=== PATIENT | female | born 1945 ===

== ENCOUNTER 2020-10-31 12:04 | Outpatient (REF) | payer MEDICARE, SELFPAY ==
--- NOTE | ~2020-10-31 | XR_ITS ---
EXAMINATION: XR FOOT, RIGHT CLINICAL INFORMATION: Foot pain COMPARISON: None TECHNIQUE: AP, lateral, and oblique views of the right foot. FINDINGS: No acute fracture or dislocation is seen. There is cortical thickening/periosteal changes along the second, third and fourth metatarsal shafts. Tarsometatarsal alignment is maintained. Large plantar calcaneal spur, with additional calcifications/ossifications along its plantar aspect. Moderate Achilles tendon insertional spurring. XR/XR foot RT min 3V IMPRESSION: 1. Cortical thickening/periostitis along the second, third, fourth metatarsal shafts.. This of indeterminate etiology. Please clinically correlate. Further evaluation with follow-up MRI can be obtained as clinically warranted. 2. No discrete acute fracture is identified. 3. Prominent calcaneal spurring as above.
== END 2020-10-31 12:05 | disposition home or self-care (01) ==
LOC: HO.HMGCX 12:04
PROVIDERS: PCP Internal Medicine; Visit Provider Hospitalist
DX: M79.671 Pain in right foot (principal)
CPT/HCPCS: 73630

== ENCOUNTER 2021-01-01 09:53 | Outpatient (REF) | payer MEDICARE, SELFPAY ==
[2021-01-01 12:04] LABS: Hematocrit 33.4 % (37-47); Hemoglobin 11.1 g/dl (12.0-16.0)
[2021-01-01 12:22] LABS: Anion Gap 14 (12-20); Blood Urea Nitrogen 20 mg/dL (9-16); Calcium 10.3 mg/dL (8.4-10.2); Carbon Dioxide 27 mmol/L (22-29); Chloride 95 mmol/L (96-108); Cholesterol 204 mg/dL; Estimated Glomerular Filt Rate > 60; Glucose Fasting 101 mg/dL (60-99); HDL Cholesterol 76 mg/dL; LDL Cholesterol Calculated 117 mg/dl; Magnesium 1.2 mg/dL (1.6-2.6); Potassium 4.1 mmol/L (3.3-5.1); Sodium 132 mmol/L (135-145); Triglycerides 56 mg/dL
== END 2021-01-01 09:54 | disposition home or self-care (01) ==
LOC: HO.HMGCLDS 09:53
PROVIDERS: PCP Internal Medicine; Visit Provider Internal Medicine
DX: K21.9 Gastro-esophageal reflux disease without esophagitis (principal); E78.9 Disorder of lipoprotein metabolism, unspecified; I10 Essential (primary) hypertension
CPT/HCPCS: 36415; 80048; 80061; 83735; 85014; 85018

== ENCOUNTER 2021-01-22 11:48 | Outpatient (REF) | payer MEDICARE, SELFPAY ==
[2021-01-22 14:33] LABS: Anion Gap 15 (12-20); Blood Urea Nitrogen 15 mg/dL (9-16); Calcium 10.1 mg/dL (8.4-10.2); Carbon Dioxide 25 mmol/L (22-29); Chloride 98 mmol/L (96-108); Estimated Glomerular Filt Rate > 60; Magnesium 1.3 mg/dL (1.6-2.6); Sodium 134 mmol/L (135-145)
== END 2021-01-22 11:49 | disposition home or self-care (01) ==
LOC: HO.HMGCLDS 11:48
PROVIDERS: PCP Internal Medicine; Visit Provider Internal Medicine
DX: E87.1 Hypo-osmolality and hyponatremia (principal); E83.52 Hypercalcemia; R79.0 Abnormal level of blood mineral
CPT/HCPCS: 36415; 80051; 82310; 82565; 83735; 84520

== ENCOUNTER 2021-02-13 11:52 | Outpatient (REF) | payer MEDICARE, SELFPAY ==
[2021-02-13 15:13] LABS: Magnesium 1.3 mg/dL (1.6-2.6)
== END 2021-02-13 11:53 | disposition home or self-care (01) ==
LOC: HO.HMGCLDS 11:52
PROVIDERS: Visit Provider Internal Medicine
DX: R79.0 Abnormal level of blood mineral (principal)
CPT/HCPCS: 36415; 83735

== ENCOUNTER 2021-02-20 11:16 | Outpatient (REF) | payer MEDICARE, SELFPAY ==
[2021-02-20 14:34] LABS: Magnesium 1.4 mg/dL (1.6-2.6)
== END 2021-02-20 11:17 | disposition home or self-care (01) ==
LOC: HO.HMGCLDS 11:16
PROVIDERS: PCP Internal Medicine; Visit Provider Internal Medicine
DX: R79.0 Abnormal level of blood mineral (principal); R01.1 Cardiac murmur, unspecified; R42 Dizziness and giddiness; I10 Essential (primary) hypertension
CPT/HCPCS: 36415; 83735

== ENCOUNTER 2021-03-11 10:39 | Outpatient (REF) | payer MEDICARE, SELFPAY ==
[2021-03-11 12:30] LABS: Magnesium 1.4 mg/dL (1.6-2.6)
== END 2021-03-11 10:40 | disposition home or self-care (01) ==
LOC: HO.HMGCLDS 10:39
PROVIDERS: PCP Internal Medicine; Visit Provider Internal Medicine
DX: R79.0 Abnormal level of blood mineral (principal)
CPT/HCPCS: 36415; 83735

== ENCOUNTER 2021-07-01 16:54 | Emergency (ER) | payer MEDICARE, SELFPAY ==
[2021-07-01 16:59] VITALS: BP 154/79; BP 169/82; PULSE 69; PULSE 77; RESP 15; TEMP 37; O2SAT 100; BMI 24.7
--- NOTE | 2021-07-01 17:03 | ED.GENADULT ---
HPI - General Adult General Chief complaint: General Medical Stated complaint: ekg changes weakness Time Seen by Provider: 07/01/21 17:03 Source: patient Mode of arrival: EMS Limitations: no limitations History of Present Illness HPI narrative: Patient history of hypertension on amlodipine and lisinopril , used to be on chlorthalidone which she stopped taking it, sent by PCP office for blood pressure 160/88 with multiple other come EKG done in the office showed first-degree AV block with premature some PVCs patient went to [facility] office for driving license which was rejected, very anxious drinks coffee no active complaints at this time Related Data Home Medications Medication Instructions Recorded Confirmed aspirin 81 mg tablet,delayed 81 mg PO DAILY 09/09/20 07/01/21 release (Adult Low Dose Aspirin) chlorthalidone 25 mg tablet 25 mg PO DAILY 09/09/20 07/01/21 simvastatin 20 mg tablet 20 mg PO DAILY 09/09/20 07/01/21 Previous Rx's Medication Instructions Recorded amlodipine 5 mg tablet 5 mg PO DAILY 90 Days #90 tab 06/02/21 lisinopril 40 mg tablet 40 mg PO DAILY 90 Days #90 tab 06/02/21 pantoprazole 20 mg tablet,delayed 20 mg PO DAILY 90 Days #90 tab 06/04/21 release lorazepam 0.5 mg tablet (Ativan) 0.5 mg PO BEDTIME PRN #14 tab 07/01/21 magnesium oxide 400 mg (241.3 mg 400 mg PO DAILY 90 Days #90 tab 07/01/21 magnesium) tablet Allergies Allergy/AdvReac Type Severity Reaction Status Date / Time meperidine [From DEMEROL] Allergy Intermediate DRY HEAVES Verified 07/01/21 17:10 Sulfa (Sulfonamide Allergy Unknown rash Verified 07/01/21 17:10 Antibiotics) sulfamethoxazole Allergy Unknown RASH Verified 07/01/21 17:10 [From BACTRIM] trimethoprim [From BACTRIM] Allergy Unknown RASH Verified 07/01/21 17:10 bee Allergy Unknown anaphylaxis Uncoded 07/01/21 17:10 Bee stings Allergy Unknown anaphylaxis Uncoded 07/01/21 17:10 Wasps/fire ants Allergy Unknown anaphylaxis Uncoded 07/01/21 17:10 Review of Systems Review of Systems: Yes all other systems are reviewed and are negative PMFSH Past Medical History Surgical History History of section History of nasal surgery History of tubal ligation Hx of removal of ovary Mammogram normal Family History Family History Father Ruptured aortic aneurysm Mother Myocardial infarction Son History of blood clots Social History Social History Housing: Other (mobile home) Alcohol intake: never Patient Tobacco Use Status: Former Tobacco user Quit Date: quit 20 years ago Use of substances other than those prescribed or required for medical reasons: No Advance Directives: No Advance Directives Information Provided: No Current occupational status: retired Physical Exam Vital Signs: Vital Signs: Last Vital Signs Temp 98.6 F 07/01/21 19:00 Pulse 72 07/01/21 19:00 Resp 15 07/01/21 19:00 BP 139/66 07/01/21 19:00 Pulse Ox 97 07/01/21 19:00 Body Mass Index 24.7 Appearance: Alert. Oriented X3. No acute distress. Very anxious Eyes: No pallor / icterus ENT: Pharynx normal. Oral Mucosa moist Neck: Normal inspection. Neck supple. CVS: Normal heart rate and rhythm. Pulses normal. Respiratory: No respiratory distress. Equal air entry bilateral, no wheezing/rales/rhonchi Abdomen: Soft , nontender, Bowel sounds are present, no mass palpable, no CVA tenderness Skin: Skin warm and dry. Normal skin color. Normal skin turgor. Extremities: No lower extremity edema. No calf tenderness Neuro: Oriented X 3. Medical Decision Making Lab Data Result diagrams: 07/01/21 17:31 07/01/21 17:31 Labs: Lab Results 07/01/21 07/01/21 Range/Units 17:31 17:31 WBC 7.1 (4.8-10.8) X10*3/uL RBC 4.48 (4.20-5.50) X10*6/uL Hgb 13.4 D (12.0-16.0) g/dl Hct 39.4 (37-47) % MCV 87.9 (80-98) fL MCH 29.9 (27.0-33.0) pg MCHC 34.0 (31.0-35.0) g/dl RDW 13.6 (11.0-16.0) % Plt Count 365 (160-400) X10*3/uL MPV 8.5 L (9.4-12.3) fL Immature Gran % (Auto) 0.6 H (0.0-0.4) % Neut % (Auto) 73.3 H (45-73) % Lymph % (Auto) 18.2 L (20-40) % [place] % (Auto) 6.4 (2-11) % Eos % (Auto) 1.1 (0-4) % Baso % (Auto) 0.4 (0-2) % Lymph # (Auto) 1.3 (1.2-4.9) X10*3/uL [place] # (Auto) 0.5 (0.1-1.2) X10*3/uL Eos # (Auto) 0.1 (0.0-0.4) X10*3/uL Baso # (Auto) 0.0 (0.0-0.2) X10*3/uL Abs Immat Gran (auto) 0.04 H (0.00-0.03) X10*3/uL Absolute Neuts (auto) 5.2 (2.0-8.3) X10*3/uL Absolute Nucleated RBC 0.000 (0.0-0.012) X10*3/uL Nucleated RBC % (auto) 0.0 (0.0-0.2) /100WBC Sodium 135 (135-145) mmol/L Potassium 3.8 (3.3-5.1) mmol/L Chloride 96 (96-108) mmol/L Carbon Dioxide 24 (22-29) mmol/L Anion Gap 19 (12-20) BUN 12 (9-16) mg/dL Creatinine 0.83 (0.5-1.4) mg/dL Estim Creat Clear Calc 51.2 Estimated GFR > 60 Random Glucose 97 (60-115) mg/dL Calcium 10.7 H (8.4-10.2) mg/dL Magnesium 1.4 L* (1.6-2.6) mg/dL Total Bilirubin 1.3 H (0.0-1.0) mg/dL AST 24 (5-31) U/L ALT 18 (0-31) U/L Alkaline Phosphatase 93 (39-117) U/L Total Protein 8.4 H (6.5-8.0) g/dL Albumin 5.0 (3.5-5.0) g/dL ECG Data Attestation: I personally reviewed and interpreted this ECG as follows: Interpretation: Normal sinus rhythm heart rate 74 beats per minute LVH no acute ST T wave changes no acute ischemia Discharge Plan Discharge Clinical Impression: Elevated blood pressure reading, Hypomagnesemia, Anxiety Patient Disposition: Home, Self-Care Instructions: Hypertension (ED), Hypomagnesemia (ED), Anxiety (ED) Additional Instructions: Continue to take chlorthalidone as advised by her PCP also continue to take magnesium oxide Take Ativan tablet for anxiety every time in the nighttime as needed Prescriptions: New lorazepam [Ativan] 0.5 mg tablet 0.5 mg PO BEDTIME PRN (Reason: anxiety) Qty: 14 RF: 0 No Action amlodipine 5 mg tablet 5 mg PO DAILY 90 Days Qty: 90 RF: 0 lisinopril 40 mg tablet 40 mg PO DAILY 90 Days Qty: 90 RF: 0 pantoprazole 20 mg tablet,delayed release (DR/EC) 20 mg PO DAILY 90 Days Qty: 90 RF: 0 magnesium oxide 400 mg (241.3 mg magnesium) tablet 400 mg PO DAILY 90 Days Qty: 90 RF: 0 simvastatin 20 mg tablet 20 mg PO DAILY RF: 0 aspirin [Adult Low Dose Aspirin] 81 mg tablet,delayed release (DR/EC) 81 mg PO DAILY RF: 0 chlorthalidone 25 mg tablet 25 mg PO DAILY RF: 0 Interventions: ED Discharge Assessment Last Done: 07/01/21 19:04 Discharge Date/Time: 07/01/21 19:12
[2021-07-01 17:08] VITALS: BP 169/80; PULSE 69; RESP 18; TEMP 37; O2SAT 100
--- NOTE | 2021-07-01 17:20 | ECG_ITS ---
Test Reason : DIZZINESS Blood Pressure : / mmHG Vent. Rate : 074 BPM Atrial Rate : 074 BPM P-R Int : 218 ms QRS Dur : 098 ms QT Int : 414 ms P-R-T Axes : 049 -39 044 degrees QTc Int : 459 ms Sinus rhythm with sinus arrhythmia with 1st degree A-V block Left axis deviation Moderate voltage criteria for LVH, may be normal variant ( R in aVL , [place] product ) Nonspecific ST abnormality Abnormal ECG No previous ECGs available Referred By: Yovani Alvarez Electronically Signed By:REENA HEATH MD
[2021-07-01 17:36] LABS: MANUAL DIFF FLAG NO
[2021-07-01 17:41] LABS: Basophils Percent Auto 0.4 % (0-2); Eosinophils Absolute Auto 0.1 X10*3/uL (0.0-0.4); Eosinophils Percent Auto 1.1 % (0-4); Hematocrit 39.4 % (37-47); Hemoglobin 13.4 g/dl (12.0-16.0); Imm Gran Abs Auto 0.04 X10*3/uL (0.00-0.03); Imm Gran Pct Auto 0.6 % (0.0-0.4); Lymphocytes Absolute Auto 1.3 X10*3/uL (1.2-4.9); Lymphocytes Percent Auto 18.2 % (20-40); Mean Corpuscular Hemoglobin 29.9 pg (27.0-33.0); Mean Corpuscular Volume 87.9 fL (80-98); Mean Platelet Volume 8.5 fL (9.4-12.3); Monocytes Absolute Auto 0.5 X10*3/uL (0.1-1.2); Monocytes Percent Auto 6.4 % (2-11); Neutrophils Absolute Auto 5.2 X10*3/uL (2.0-8.3); Neutrophils Percent Auto 73.3 % (45-73); Platelet Count 365 X10*3/uL (160-400); Red Blood Count 4.48 X10*6/uL (4.20-5.50); Red Cell Distribution Width 13.6 % (11.0-16.0); White Blood Count 7.1 X10*3/uL (4.8-10.8)
[2021-07-01 18:19] LABS: Alanine Aminotransferase 18 U/L (0-31); Alkaline Phosphatase 93 U/L (39-117); Anion Gap 19 (12-20); Aspartate Amino Transferase 24 U/L (5-31); Bilirubin Total 1.3 mg/dL (0.0-1.0); Blood Urea Nitrogen 12 mg/dL (9-16); Calcium 10.7 mg/dL (8.4-10.2); Carbon Dioxide 24 mmol/L (22-29); Chloride 96 mmol/L (96-108); Creatinine Clr Calc Pharmacy 51.2; Estimated Glomerular Filt Rate > 60; Glucose Random 97 mg/dL (60-115); Magnesium 1.4 mg/dL (1.6-2.6); Potassium 3.8 mmol/L (3.3-5.1); Sodium 135 mmol/L (135-145); Total Protein 8.4 g/dL (6.5-8.0)
[2021-07-01] MEDS: Magnesium Oxide 400 MG TABLET 800 MG PO (18:30)
[2021-07-01 19:00] VITALS: BP 139/66; PULSE 72; RESP 15; TEMP 37; O2SAT 97
[2021-07-01] MEDS: LORazepam 0.5 MG TABLET PO (19:03)
--- NOTE | 2021-07-01 19:10 | PC.NURSE ---
Pt remains alert and oriented x4, pt noted to have anxiety but is calm and cooperative. Pt denies pain. No IV in place, vitals stable. Pt ambulated without issues. Pt voided. Pt and educated on dc and stated an understanding.
== END 2021-07-01 19:12 | disposition home or self-care (01) ==
PROVIDERS: Emergency Provider Internal Medicine; PCP Internal Medicine
DX: I10 Essential (primary) hypertension (principal); F41.9 Anxiety disorder, unspecified; E83.42 Hypomagnesemia; I44.0 Atrioventricular block, first degree; Z79.899 Other long term (current) drug therapy
CPT/HCPCS: 36415; 80053; 83735; 85025; 93005; 99283; 99284

== ENCOUNTER 2021-11-20 11:55 | Outpatient (REF) | payer MEDICARE, SELFPAY ==
[2021-11-20 14:14] LABS: Alanine Aminotransferase 15 U/L (0-31); Albumin Level 4.3 g/dL (3.5-5.0); Alkaline Phosphatase 79 U/L (39-117); Anion Gap 15 (12-20); Aspartate Amino Transferase 18 U/L (5-31); Bilirubin Total 1.3 mg/dL (0.0-1.0); Blood Urea Nitrogen 11 mg/dL (9-16); Calcium 10.3 mg/dL (8.4-10.2); Carbon Dioxide 25 mmol/L (22-29); Chloride 99 mmol/L (96-108); Estimated Glomerular Filt Rate > 60; Glucose Random 93 mg/dL (60-115); Potassium 4.1 mmol/L (3.3-5.1); Sodium 135 mmol/L (135-145); Total Protein 7.4 g/dL (6.5-8.0)
[2021-11-20 14:27] LABS: Magnesium 1.3 mg/dL (1.6-2.6)
== END 2021-11-20 11:56 | disposition home or self-care (01) ==
LOC: HO.HMGCLDS 11:55
PROVIDERS: PCP Internal Medicine; Visit Provider Internal Medicine
DX: I10 Essential (primary) hypertension (principal); E78.9 Disorder of lipoprotein metabolism, unspecified; R79.0 Abnormal level of blood mineral
CPT/HCPCS: 36415; 80053; 83735

== ENCOUNTER 2021-12-02 11:24 | Outpatient (REF) | payer MEDICARE, SELFPAY ==
[2021-12-02 14:05] LABS: Calcium 10.7 mg/dL (8.4-10.2); Magnesium 1.5 mg/dL (1.6-2.6)
[2021-12-03 12:06] LABS: Calcium (PTHI) 10.5 mg/dL (8.6-10.4); PTHI 53 pg/mL (16-77)
== END 2021-12-02 11:25 | disposition home or self-care (01) ==
LOC: HO.HMGCLDS 11:24
PROVIDERS: PCP Internal Medicine; Visit Provider Internal Medicine
DX: E83.52 Hypercalcemia (principal); I10 Essential (primary) hypertension
CPT/HCPCS: 36415; 82310; 83735; 83970

== ENCOUNTER 2022-07-22 09:10 | Outpatient (REF) | payer MEDICARE, SELFPAY ==
[2022-07-22 11:19] LABS: MANUAL DIFF FLAG NO
[2022-07-22 11:45] LABS: Basophils Absolute Auto 0.1 X10*3/uL (0.0-0.2); Basophils Percent Auto 0.9 % (0-2); Eosinophils Absolute Auto 0.2 X10*3/uL (0.0-0.4); Eosinophils Percent Auto 3.1 % (0-4); Hematocrit 38.5 % (37.0-47.0); Hemoglobin 12.8 g/dl (12.0-16.0); Imm Gran Abs Auto 0.04 X10*3/uL (0.00-0.03); Imm Gran Pct Auto 0.7 % (0.0-0.4); Lymphocytes Absolute Auto 1.4 X10*3/uL (1.2-4.9); Lymphocytes Percent Auto 25.1 % (20-40); Mean Corpuscular HGB Conc 33.2 g/dl (31.0-35.0); Mean Corpuscular Volume 90.2 fL (80.0-98.0); Mean Platelet Volume 8.7 fL (9.4-12.3); Monocytes Absolute Auto 0.4 X10*3/uL (0.1-1.2); Monocytes Percent Auto 7.3 % (2-11); Neutrophils Absolute Auto 3.4 x10*3/uL (2.0-8.3); Neutrophils Percent Auto 62.9 % (45-73); Platelet Count 397 X10*3/uL (160-400); Red Blood Count 4.27 X10*6/uL (4.20-5.50); Red Cell Distribution Width 13.3 % (11.0-16.0); White Blood Count 5.5 X10*3/uL (4.8-10.8)
[2022-07-22 12:08] LABS: Alanine Aminotransferase 14 U/L (0-31); Albumin Level 4.3 g/dL (3.5-5.0); Alkaline Phosphatase 78 U/L (39-117); Anion Gap 16 (12-20); Aspartate Amino Transferase 19 U/L (5-31); Bilirubin Total 0.9 mg/dL (0.0-1.0); Blood Urea Nitrogen 13 mg/dL (9-16); Calcium 10.3 mg/dL (8.4-10.2); Carbon Dioxide 27 mmol/L (22-29); Chloride 98 mmol/L (96-108); Cholesterol 241 mg/dL; Estimated Glomerular Filt Rate > 60; Glucose Random 87 mg/dL (60-115); HDL Cholesterol 93 mg/dL; LDL Cholesterol Calculated 138 mg/dl; Magnesium 1.5 mg/dL (1.6-2.6); Potassium 4.5 mmol/L (3.3-5.1); Sodium 136 mmol/L (135-145); Total Protein 7.3 g/dL (6.5-8.0); Triglycerides 53 mg/dL
[2022-07-22 17:11] LABS: Vitamin B12 461 pg/mL (200-900)
[2022-07-30 14:32] LABS: Vitamin D 25-OH, D2 <4 ng/mL; Vitamin D 25-OH, D3 18 ng/mL; Vitamin D 25-OH, Total 18 ng/mL (30-100)
== END 2022-07-22 09:11 | disposition home or self-care (01) ==
LOC: HO.HMGCLDS 09:10
PROVIDERS: PCP Internal Medicine; Visit Provider Internal Medicine
DX: I10 Essential (primary) hypertension (principal); E78.9 Disorder of lipoprotein metabolism, unspecified; K21.9 Gastro-esophageal reflux disease without esophagitis; E87.1 Hypo-osmolality and hyponatremia; E83.52 Hypercalcemia; R79.0 Abnormal level of blood mineral
CPT/HCPCS: 36415; 80053; 80061; 82306; 82607; 83735; 84443; 85025

== ENCOUNTER 2022-07-25 09:25 | Emergency (ER) | payer MEDICARE, SELFPAY ==
--- NOTE | ~2022-07-25 | CT_ITS ---
EXAMINATION: CT HEAD WITHOUT CONTRAST CLINICAL INFORMATION: Dizziness. COMPARISON: None TECHNIQUE: Contiguous axial imaging was performed from the skull base to vertex without intravenous administration of contrast. Coronal and sagittal reformatted images were obtained. This CT examination was performed using dose optimization techniques as appropriate, variously including the following: *Automated exposure control *Adjustment of mA and/or kV according to patient size (this includes techniques or standardized protocols for targeted exams where dose is matched to indication/reason for exam; i.e. extremities or head) *Use of iterative reconstruction technique DLP: 509 mGy-cm FINDINGS: There is mild widening of the cortical sulci and associated ventriculomegaly. The lateral ventricles are symmetrical. Mild periventricular microvascular changes. The third and fourth ventricles are in their normal midline position. The basilar and prepontine cisterns are unremarkable. There is no acute intra or extracerebral abnormality. There is no mass effect or midline shift. Sections through the bony calvarium are unremarkable. The orbits are intact. The paranasal sinuses are clear. The mastoid air cells are clear. Mild anterior nasal septal deviation, apex of the right. CT/CT head/brain wo IV con IMPRESSION: No acute intracranial pathology.
[2022-07-25 09:29] VITALS: BP 128/80; BP 145/59; PULSE 57; PULSE 67; RESP 20; TEMP 36.5; O2SAT 100; O2SAT 96; BMI 23.8
--- NOTE | 2022-07-25 09:32 | ED_ITS ---
HPI - Dizziness General Chief Complaint: General Medical Stated Complaint: LIGHTHEADED THIS AM,? NEW MED PER EMS Time Seen by Provider: 07/25/22 09:27 Source: patient and EMS Mode of arrival: EMS Limitations: no limitations History of Present Illness HPI Narrative: 77-year-old female with a history of hypertension, hyperlipidemia, GERD, anxiety presents with episode of lightheadedness which occurred just prior to arrival and is now resolved. Per patient she stood up and felt very lightheaded like she was going to pass out. When she sat down she felt better. Patient reports episodes like this similar in the past. Of note, they did recently change her blood pressure medication. Her amlodipine, lisinopril and chlorthalidone were discontinued. She was placed on lisinopril with hydrochlorothiazide combin ation. She has been taking that for the last few days. Patient reports when she stood up she also felt very sweaty. She had no associated chest pain, shortness of breath, headache, vomiting. She feels overall much better at rest but does still have some slight lightheadedness. Related Data Home Medications Medication Instructions Recorded Confirmed aspirin 81 mg tablet,delayed 81 mg PO DAILY 09/09/20 07/21/22 release (Adult Low Dose Aspirin) Previous Rx's Medication Instructions Recorded lorazepam 0.5 mg tablet (Ativan) 0.5 mg PO BEDTIME PRN anxiety #14 07/01/21 tabs pantoprazole 20 mg tablet,delayed 20 mg PO DAILY 90 days #90 tabs 06/14/22 release magnesium oxide 400 mg (241.3 mg 400 mg PO DAILY 90 days #90 tabs 06/16/22 magnesium) tablet lisinopril 20 1 tab PO BID 90 days #180 tabs 07/21/22 mg-hydrochlorothiazide 12.5 mg tablet Allergies Allergy/AdvReac Type Severity Reaction Status Date / Time meperidine [From DEMEROL] Allergy Intermediate DRY HEAVES Verified 07/21/22 10:23 Sulfa (Sulfonamide Allergy Unknown rash Verified 07/21/22 10:23 Antibiotics) sulfamethoxazole Allergy Unknown RASH Verified 07/21/22 10:23 [From BACTRIM] trimethoprim [From BACTRIM] Allergy Unknown RASH Verified 07/21/22 10:23 bee Allergy Unknown anaphylaxis Uncoded 11/24/21 10:13 Bee stings Allergy Unknown anaphylaxis Uncoded 11/24/21 10:13 Wasps/fire ants Allergy Unknown anaphylaxis Uncoded 11/24/21 10:13 Review of Systems Review of Systems: Yes all other systems are reviewed and are negative Constitutional: Constitutional: Reports no additional constitutional complaints, Denies body ache(s), Denies chills, Denies fever(s), Denies headache(s) and Denies weakness Eyes: Eyes: Reports no additional eye complaints and Denies change in vision ENT: Reports system reviewed and no additional complaints, except as documented, Reports dizziness, Denies headache(s), Denies nasal congestion, Denies nasal discharge and Denies neck pain Cardiovascular: Cardiovascular: Reports no additional cardiovascular complaints, Denies chest pain, Denies leg edema and Denies dyspnea Respiratory: Respiratory: Reports no additional respiratory complaints, Denies cough and Denies dyspnea Gastrointestinal: Gastrointestinal: Reports no additional gastrointestinal complaints, Denies abdominal pain, Denies diarrhea, Denies nausea and Denies vomiting Genitourinary: Genitourinary: Reports no additional female genitourinary complaints and Denies urinary incontinence Musculoskeletal: Musculoskeletal: Reports no additional musculoskeletal compla ints, Denies back pain, Denies arthralgias, Denies joint swelling, Denies neck pain, Denies numbness and Denies tingling Integumentary/Breasts: Skin/Breast: Reports system reviewed and no additional complaints, except as docu and Denies rash Neurologic: Reports system reviewed and no additional complaints, except as documented, Denies Abnormal speech present, Reports dizziness, Denies headache(s), Denies numbness, Denies tingling and Denies weakness [facility] Past Medical History Attestation statement: The following information was validated with the patient. Source: old records reviewed and nursing notes reviewed Surgical History History of section History of nasal surgery History of tubal ligation Hx of removal of ovary Mammogram normal Family History Family History Father Ruptured aortic aneurysm Mother Myocardial infarction Son History of blood clots Social History Social History Housing: Other (mobile home) Alcohol intake: current Alcohol intake frequency: 0-2 drinks per day Alcohol type: beer Patient Tobacco Use Status: Former Tobacco user Quit Date: quit 20 years ago Smoked in Last 30 Days: No e-Cigarette/Vaping Use: Never Used Use of substances other than those prescribed or required for medical reasons: No Advance Directives: No Advance Directives Information Provided: No Current occupational status: retired Cognitive needs: No Hearing needs: No Vision needs: No Physical Exam Vital Signs: Vital Signs: Last Vital Signs Temp 98.1 F 07/25/22 15:44 Pulse 65 07/25/22 15:44 Resp 17 07/25/22 15:44 BP 162/73 H 07/25/22 15:44 Pulse Ox 99 07/25/22 15:44 O2 Del Method 07/25/22 15:44 BMI result Body Mass Index 23.8 Const: General: cooperative, healthy appearing, comfortable and no acute dis tress Orientation/consciousness: patient oriented x3 Limitations: no limitations HEENT: Head: Yes normal to inspection Ears: hearing grossly normal bilaterally General nose exam: Normal external nose present Face and sinus: Yes normal facial exam Mouth: Normal oral and palatal mucosa present Throat: Yes posterior oropharynx normal Eyes: General: appearance normal, both eyes and all related structures Pupils: Equal, round and reactive pupils present Neck: Neck: Yes normal visual inspection Chest: Chest palpation & inspection: normal inspection of the chest Resp: Effort & Inspection: normal respiratory effort Auscultation: clear to auscultation bilaterally Cardio: Rate: regular rate Rhythm: regular rhythm Peripheral pulses: Peripheral pulses 2+ throughout GI: Inspection: Yes normal to inspection Palpation (GI): Soft to palpation and nontender Auscultation: normal bowel sounds Back/Spine/Pelvis: Thoracic/Lumbar Spine: thoracic and lumbar spine normal to inspection Skin: General skin exam: no rashes or lesions noted Neuro: General: patient oriented x3, moves all extremities, no focal motor deficits and normal sensation to monofilament Cranial nerves: Yes CN's II-XII intact bilaterally, Yes Equal, round and reactive pupils present, Yes Bilaterally intact EOM present, Yes Nystagmus not present, Yes Normal facial strength present and Yes Midline tongue present Cognition (Neuro): normal cognition Speech: No Abnormal speech present Gait exam (Neuro): Normal gait present Motor exam (neuro): 5/5 motor strength present throughout Sensory Exam: Normal double simultaneous stimulation for sensation Coordination: [id number] test normal, [id number] test normal and tandem gait normal Extrem: General: Yes normal to inspection Course Course Course Narrative: 1000-patient with a 20 point increase in heart rate and 20 point decrease in systolic blood pressure with position changes. Will give IV fluid bolus Reevaluation(s) Reevaluation #1: 1100-labs show hypo magnesium me a which appears chronic. Mild hyponatremia which may be secondary to recent diuretic start. Patient receiving saline. Will add magnesium replacement. Will reassess Reevaluation #2: 1330-Family arrives and has a very different HPI to share with staff. Per family patient was sitting in her chair complaining of feeling lightheaded, had ?shaking activity of upper arms and eyes rolling around but no LOC. Patient fell out of the chair. +head strike on the wall. No incontinence of urine/stool. Episode was brief per family seconds with no postictal state. Will check CT head. Reevaluation #3: 1650-CT head shows no acute finding. Repeat sodium and magnesium are improved with some hydration. Patient overall feels better. Ambulating to bathroom a steady gait. Low magnesium and sodium likely secondary to recent diuretic use. Her blood pressure is mildly elevated here. Recommend take lisinopril only and not lisinopril with hydrochlorothiazide. She does have lisinopril at home. She will take her 1st dose tonight. Recommend follow-up with her primary care doctor outpatient. Reviewed worrisome signs and symptoms of when to return to the emergency room. Comfortable discharge home. Medications Administered Discontinued Medications Generic Name Dose Route Start Last Admin Trade Name Rahatq PRN Reason Stop Dose Admin Sodium Chloride 1,000 mls @ 999 mls/hr 07/25/22 10:05 07/25/22 15:50 Ns IV 07/25/22 11:05 Infused .Q1H1M STA Infusion Magnesium Sulfate 2 gm in 50 mls @ 25 mls/hr 07/25/22 10:56 07/25/22 12:49 Magnesium Sulfate/H2o IV 07/25/22 12:55 Infused ONCE ONE Infusion MDM - Dizziness MDM Narrative Medical decision making narrative: 77-year-old female with recent changes in her blood pressure medication here with episode of lightheadedness that occurred with position changes and sweaty sensation now improved with rest. Normal neuro exam including cerebellar function Vitals are stable Will check labs, UA, EKG, COVID screen, orthostatic Likely orthostatic hypotension, consider [facility] Medical Records Attestation: I reviewed the patient's medical records. Lab Data Attestation: I reviewed the patient's lab results. Result diagrams: 07/25/22 10:00 07/25/22 15:37 Labs: Lab Results 07/25/22 07/25/22 07/25/22 Range/Units 10:00 10:00 10:00 WBC 6.1 (4.8-10.8) X10*3/uL RBC 4.38 (4.20-5.50) X10*6/uL Hgb 13.2 (12.0-16.0) g/dl Hct 38.1 (37.0-47.0) % MCV 87.0 (80.0-98.0) fL MCH 30.1 (27.0-33.0) pg MCHC 34.6 (31.0-35.0) g/dl RDW 12.9 (11.0-16.0) % Plt Count 371 (160-400) X10*3/uL MPV 8.4 L (9.4-12.3) fL Immature Gran % (Auto) 0.8 H (0.0-0.4) % Neut % (Auto) 66.3 (45-73) % Lymph % (Auto) 20.2 (20-40) % Wetzel % (Auto) 8.6 (2-11) % Eos % (Auto) 3.1 (0-4) % Baso % (Auto) 1.0 (0-2) % Lymph # (Auto) 1.2 (1.2-4.9) X10*3/uL Wetzel # (Auto) 0.5 (0.1-1.2) X10*3/uL Eos # (Auto) 0.2 (0.0-0.4) X10*3/uL Baso # (Auto) 0.1 (0.0-0.2) X10*3/uL Abs Immat Gran (auto) 0.05 H (0.00-0.03) X10*3/uL Absolute Neuts (auto) 4.1 (2.0-8.3) x10*3/uL Absolute Nucleated RBC 0.000 (0.0-0.012) X10*3/uL Nucleated RBC % (auto) 0.0 (0.0-0.2) /100WBC Sodium 131 L (135-145) mmol/L Potassium 4.2 (3.3-5.1) mmol/L Chloride 92 L (96-108) mmol/L Carbon Dioxide 24 (22-29) mmol/L Anion Gap 19 (12-20) BUN 17 H (9-16) mg/dL Creatinine 0.88 (0.5-1.4) mg/dL Estim Creat Clear Calc 43.6 Estimated GFR > 60 Random Glucose 132 H (60-115) mg/dL Calcium 10.5 H (8.4-10.2) mg/dL Magnesium 1.3 L* (1.6-2.6) mg/dL Total Bilirubin 1.0 (0.0-1.0) mg/dL Direct Bilirubin 0.4 (0.0-0.5) mg/dL AST 22 (5-31) U/L ALT 15 (0-31) U/L Alkaline Phosphatase 79 (39-117) U/L Troponin I High Sens 5.1 (<3.5-17.0) ng/L Total Protein 7.7 (6.5-8.0) g/dL Albumin 4.5 (3.5-5.0) g/dL Urine Color Urine Appearance Urine pH (5.0-9.0) Ur Specific [place] (1.005-1.025) Urine Protein (Neg-Trace) mg/dL Urine Glucose (UA) (Negative) mg/dL Urine Ketones (Negative) mg/dL Urine Blood (Negative) Urine Nitrite (Negative) Ur Leukocyte Esterase (Negative) COVID-19 (DEIRDRE) (Negative) COVID-19 Clin Com 07/25/22 07/25/22 07/25/22 Range/Units 10:00 15:37 15:38 WBC (4.8-10.8) X10*3/uL RBC (4.20-5.50) X10*6/uL Hgb (12.0-16.0) g/dl Hct (37.0-47.0) % MCV (80.0-98.0) fL MCH (27.0-33.0) pg MCHC (31.0-35.0) g/dl RDW (11.0-16.0) % Plt Count (160-400) X10*3/uL MPV (9.4-12.3) fL Immature Gran % (Auto) (0.0-0.4) % Neut % (Auto) (45-73) % Lymph % (Auto) (20-40) % Wetzel % (Auto) (2-11) % Eos % (Auto) (0-4) % Baso % (Auto) (0-2) % Lymph # (Auto) (1.2-4.9) X10*3/uL Wetzel # (Auto) (0.1-1.2) X10*3/uL Eos # (Auto) (0.0-0.4) X10*3/uL Baso # (Auto) (0.0-0.2) X10*3/uL Abs Immat Gran (auto) (0.00-0.03) X10*3/uL Absolute Neuts (auto) (2.0-8.3) x10*3/uL Absolute Nucleated RBC (0.0-0.012) X10*3/uL Nucleated RBC % (auto) (0.0-0.2) /100WBC Sodium 133 L (135-145) mmol/L Potassium 4.2 (3.3-5.1) mmol/L Chloride 97 (96-108) mmol/L Carbon Dioxide 25 (22-29) mmol/L Anion Gap 15 (12-20) BUN 14 (9-16) mg/dL Creatinine 0.74 (0.5-1.4) mg/dL Estim Creat Clear Calc 51.9 Estimated GFR > 60 Random Glucose 89 (60-115) mg/dL Calcium 10.0 (8.4-10.2) mg/dL Magnesium 1.9 (1.6-2.6) mg/dL Total Bilirubin (0.0-1.0) mg/dL Direct Bilirubin (0.0-0.5) mg/dL AST (5-31) U/L ALT (0-31) U/L Alkaline Phosphatase (39-117) U/L Troponin I High Sens 5.2 (<3.5-17.0) ng/L Total Protein (6.5-8.0) g/dL Albumin (3.5-5.0) g/dL Urine Color Urine Appearance Urine pH (5.0-9.0) Ur Specific [place] (1.005-1.025) Urine Protein (Neg-Trace) mg/dL Urine Glucose (UA) (Negative) mg/dL Urine Ketones (Negative) mg/dL Urine Blood (Negative) Urine Nitrite (Negative) Ur Leukocyte Esterase (Negative) COVID-19 (DEIRDRE) Negative (Negative) COVID-19 Clin Com See Note 07/25/22 Range/Units 16:19 WBC (4.8-10.8) X10*3/uL RBC (4.20-5.50) X10*6/uL Hgb (12.0-16.0) g/dl Hct (37.0-47.0) % MCV (80.0-98.0) fL MCH (27.0-33.0) pg MCHC (31.0-35.0) g/dl RDW (11.0-16.0) % Plt Count (160-400) X10*3/uL MPV (9.4-12.3) fL Immature Gran % (Auto) (0.0-0.4) % Neut % (Auto) (45-73) % Lymph % (Auto) (20-40) % Wetzel % (Auto) (2-11) % Eos % (Auto) (0-4) % Baso % (Auto) (0-2) % Lymph # (Auto) (1.2-4.9) X10*3/uL Wetzel # (Auto) (0.1-1.2) X10*3/uL Eos # (Auto) (0.0-0.4) X10*3/uL Baso # (Auto) (0.0-0.2) X10*3/uL Abs Immat Gran (auto) (0.00-0.03) X10*3/uL Absolute Neuts (auto) (2.0-8.3) x10*3/uL Absolute Nucleated RBC (0.0-0.012) X10*3/uL Nucleated RBC % (auto) (0.0-0.2) /100WBC Sodium (135-145) mmol/L Potassium (3.3-5.1) mmol/L Chloride (96-108) mmol/L Carbon Dioxide (22-29) mmol/L Anion Gap (12-20) BUN (9-16) mg/dL Creatinine (0.5-1.4) mg/dL Estim Creat Clear Calc Estimated GFR Random Glucose (60-115) mg/dL Calcium (8.4-10.2) mg/dL Magnesium (1.6-2.6) mg/dL Total Bilirubin (0.0-1.0) mg/dL Direct Bilirubin (0.0-0.5) mg/dL AST (5-31) U/L ALT (0-31) U/L Alkaline Phosphatase (39-117) U/L Troponin I High Sens (<3.5-17.0) ng/L Total Protein (6.5-8.0) g/dL Albumin (3.5-5.0) g/dL Urine Color Yellow Urine Appearance Clear Urine pH 7.0 (5.0-9.0) Ur Specific [place] 1.010 (1.005-1.025) Urine Protein Negative (Neg-Trace) mg/dL Urine Glucose (UA) Negative (Negative) mg/dL Urine Ketones Trace (Negative) mg/dL Urine Blood Negative (Negative) Urine Nitrite Negative (Negative) Ur Leukocyte Esterase Negative (Negative) COVID-19 (DEIRDRE) (Negative) COVID-19 Clin Com Imaging Data CT scan - head: Attestation: I personally reviewed and interpreted this imaging study as follows: Radiologist's impression: [place] [id number] CT Scan Report Signed Patient: Caitie Rodriguez MR#: [id number] : 1945 Acct:[id number] Age/Sex: 77 / F ADM Date: 07/25/22 Loc: HO.ED Attending Dr: Ordering Physician: Nichole Barry NP Date of Service: 07/25/22 Procedure(s): CT head/brain wo IV con Accession Number(s): [id number] cc: Nichole Barry NP~ EXAMINATION: CT HEAD WITHOUT CONTRAST CLINICAL INFORMATION: Dizziness.? COMPARISON: None TECHNIQUE: Contiguous axial imaging was performed from the skull base to vertex without intravenous administration of contrast. Coronal and sagittal reformatted images were obtained. This CT examination was performed using dose optimization techniques as appropriate, variously including the following: *Automated exposure control *Adjustment of mA and/or kV according to patient size (this includes techniques or standardized protocols for targeted exams where dose is matched to indication/reason for exam; i.e. extremities or head) *Use of iterative reconstruction technique DLP: 509 mGy-cm FINDINGS: There is mild widening of the cortical sulci and associated ventriculomegaly. The lateral ventricles are symmetrical. Mild periventricular microvascular changes. The third and fourth ventricles are in their normal midline position. The basilar and prepontine cisterns are unremarkable. There is no acute intra or extracerebral abnormality. There is no mass effect or midline shift. Sections through the bony calvarium are unremarkable. The orbits are intact. The paranasal sinuses are clear. The mastoid air cells are clear. Mild anterior nasal septal deviation, apex of the right. CT/CT head/brain wo IV con IMPRESSION: No acute intracranial pathology. ECG Data Attestation: I personally reviewed and interpreted this ECG as follows: ECG interpretation date: 07/25/22 ECG interpretation time: 10:28 Interpretation: EKG is interpreted as AFib. However there are P waves present. There is artifact. This appears to be normal sinus rhythm with PACs. There are Q-waves noted in V1 and V3 which are on previous EKG June of 2021 Discharge Plan Discharge Clinical Impression: Low magnesium level, Low sodium levels, Dizziness Patient Disposition: Home, Self-Care Instructions: Hyponatremia (ED), Hypomagnesemia (ED), Dizziness (ED) Additional Instructions: Change positions slowly Stop taking the lisinopril-hydrochlorothiazide combination. Take lisinopril only and take at nighttime. Follow-up with Dr Daphne Fraga this week. Prescriptions: No Action pantoprazole 20 mg tablet,delayed release (DR/EC) 20 mg PO DAILY 90 Days Qty: 90 0RF magnesium oxide 400 mg (241.3 mg magnesium) tablet 400 mg PO DAILY 90 Days Qty: 90 0RF lorazepam [Ativan] 0.5 mg tablet 0.5 mg PO BEDTIME PRN (Reason: anxiety) Qty: 14 0RF aspirin [Adult Low Dose Aspirin] 81 mg tablet,delayed release (DR/EC) 81 mg PO DAILY lisinopril-hydrochlorothiazide 20-12.5 mg tablet 1 tab PO BID 90 Days Qty: 180 0RF Referrals: Daphne Fraga MD [Primary Care Provider] - 1 week
--- NOTE | 2022-07-25 09:33 | ECG_ITS ---
Test Reason : DIZZINESS Blood Pressure : / mmHG Vent. Rate : 058 BPM Atrial Rate : 000 BPM P-R Int : 000 ms QRS Dur : 086 ms QT Int : 440 ms P-R-T Axes : 000 -49 053 degrees QTc Int : 431 ms Sinus bradycardia with 1st degree A-V block with occasional Premature atrial complexes Left anterior fascicular block Moderate voltage criteria for LVH, may be normal variant ( R in aVL , [place] product ) Abnormal ECG When compared with ECG of 01-JUL-2021 17:55, Questionable change in initial forces of Septal leads Non-specific change in ST segment in Lateral leads Referred By: Nichole Barry Electronically Signed By:REENA HEATH MD
[2022-07-25 09:45] VITALS: BP 139/52; PULSE 57
[2022-07-25 09:47] VITALS: BP 122/64; PULSE 70
[2022-07-25 09:50] VITALS: BP 113/74; PULSE 72
[2022-07-25 10:04] LABS: MANUAL DIFF FLAG NO
[2022-07-25 10:08] LABS: Basophils Absolute Auto 0.1 X10*3/uL (0.0-0.2); Eosinophils Absolute Auto 0.2 X10*3/uL (0.0-0.4); Eosinophils Percent Auto 3.1 % (0-4); Hematocrit 38.1 % (37.0-47.0); Hemoglobin 13.2 g/dl (12.0-16.0); Imm Gran Abs Auto 0.05 X10*3/uL (0.00-0.03); Imm Gran Pct Auto 0.8 % (0.0-0.4); Lymphocytes Absolute Auto 1.2 X10*3/uL (1.2-4.9); Lymphocytes Percent Auto 20.2 % (20-40); Mean Corpuscular HGB Conc 34.6 g/dl (31.0-35.0); Mean Corpuscular Hemoglobin 30.1 pg (27.0-33.0); Mean Platelet Volume 8.4 fL (9.4-12.3); Monocytes Absolute Auto 0.5 X10*3/uL (0.1-1.2); Monocytes Percent Auto 8.6 % (2-11); Neutrophils Absolute Auto 4.1 x10*3/uL (2.0-8.3); Neutrophils Percent Auto 66.3 % (45-73); Platelet Count 371 X10*3/uL (160-400); Red Blood Count 4.38 X10*6/uL (4.20-5.50); Red Cell Distribution Width 12.9 % (11.0-16.0); White Blood Count 6.1 X10*3/uL (4.8-10.8)
[2022-07-25] MEDS: 0.9 % Sodium Chloride 1,000 ML 999 ML IV (10:10)
[2022-07-25 10:17] LABS: IDNOW Serial# 55D5AD1C
[2022-07-25 10:18] LABS: COVID-19 Test Negative (Negative)
[2022-07-25 10:46] LABS: Troponin-I High Sensitivity 5.1 ng/L (<3.5-17.0)
[2022-07-25 10:57] LABS: Alanine Aminotransferase 15 U/L (0-31); Albumin Level 4.5 g/dL (3.5-5.0); Alkaline Phosphatase 79 U/L (39-117); Anion Gap 19 (12-20); Aspartate Amino Transferase 22 U/L (5-31); Bilirubin Direct 0.4 mg/dL (0.0-0.5); Blood Urea Nitrogen 17 mg/dL (9-16); Calcium 10.5 mg/dL (8.4-10.2); Carbon Dioxide 24 mmol/L (22-29); Chloride 92 mmol/L (96-108); Creatinine Clr Calc Pharmacy 43.6; Estimated Glomerular Filt Rate > 60; Glucose Random 132 mg/dL (60-115); Magnesium 1.3 mg/dL (1.6-2.6); Potassium 4.2 mmol/L (3.3-5.1); Sodium 131 mmol/L (135-145); Total Protein 7.7 g/dL (6.5-8.0)
[2022-07-25] MEDS: Magnesium Sulfate/H2O 2 GM/50 ML PIGGYBACK IV (11:11)
[2022-07-25 12:35] VITALS: BP 143/76; PULSE 64; RESP 17; TEMP 36.6; O2SAT 100
[2022-07-25 15:44] VITALS: BP 162/73; PULSE 65; RESP 17; TEMP 36.7; O2SAT 99
[2022-07-25 16:11] LABS: Anion Gap 15 (12-20); Blood Urea Nitrogen 14 mg/dL (9-16); Carbon Dioxide 25 mmol/L (22-29); Chloride 97 mmol/L (96-108); Creatinine Clr Calc Pharmacy 51.9; Estimated Glomerular Filt Rate > 60; Glucose Random 89 mg/dL (60-115); Magnesium 1.9 mg/dL (1.6-2.6); Potassium 4.2 mmol/L (3.3-5.1); Sodium 133 mmol/L (135-145)
[2022-07-25 16:16] LABS: Troponin-I High Sensitivity 5.2 ng/L (<3.5-17.0)
[2022-07-25 16:32] LABS: Appearance Urine Clear; Color Urine Yellow; Glucose Urine UA Negative (Negative); Leukocyte Esterase Urine Negative (Negative); Nitrite Urine Negative (Negative); Urine Blood Negative (Negative); Urine Ketones Trace mg/dL (Negative); Urine Protein Negative (Neg-Trace)
[2022-07-27 13:52] LABS: Calcium, Ionized 5.3 mg/dL (4.8-5.6)
== END 2022-07-25 16:53 | disposition home or self-care (01) ==
PROVIDERS: Nurse Practitioner Family; Emergency Provider Emergency Medicine Emergency Medical Services; PCP Internal Medicine
DX: R42 Dizziness and giddiness (principal); I10 Essential (primary) hypertension; E83.40 Disorders of magnesium metabolism, unspecified; R51.9 Headache, unspecified; Z79.899 Other long term (current) drug therapy; Z20.822 Contact with and (suspected) exposure to COVID-19
CPT/HCPCS: 36415; 70450; 80048; 80076; 81003; 82330; 83735; 84484; 85025; 87635; 93005; 96365; 96366; 99284; J3475

== ENCOUNTER 2023-04-20 12:24 | Outpatient (AMB) | payer MEDICARE, SELFPAY ==
--- NOTE | 2023-04-20 12:25 | MHC.PC.OV ---
Vital Signs 04/20/23 12:27 Height 5 ft 2 in Weight 128 lb BMI 23.4 BP 130/80 Blood Pressure Location Lt brachial Position Sitting Pulse 60 Pulse Source Pulse Oximeter Pulse Oximetry (%) 100 Oxygen Delivery Method Room Air Intake Visit Reasons: 4m f/u reschedule Allergies meperidine [From DEMEROL] Allergy (Intermediate, Verified 04/20/23 12:27) DRY HEAVES Sulfa (Sulfonamide Antibiotics) Allergy (Unknown, Verified 04/20/23 12:27) rash sulfamethoxazole [From BACTRIM] Allergy (Unknown, Verified 04/20/23 12:27) RASH trimethoprim [From BACTRIM] Allergy (Unknown, Verified 04/20/23 12:27) RASH bee Allergy (Unknown, Uncoded 04/20/23 12:27) anaphylaxis Bee stings Allergy (Unknown, Uncoded 04/20/23 12:27) anaphylaxis Wasps/fire ants Allergy (Unknown, Uncoded 04/20/23 12:27) anaphylaxis Hydrochlorothiazide Adverse Reaction (Mild, Uncoded 04/20/23 12:27) Lightheadedness Medication List - Last Reconciled 04/20/23 by Daphne Fraga MD aspirin (Adult Low Dose Aspirin) 81 mg PO DAILY lisinopril 40 mg PO DAILY magnesium oxide 400 mg PO DAILY 90 days pantoprazole 20 mg PO DAILY 90 days Tobacco use date assessed: 11/24/22 HPI 4m f/u reschedule HPI Details Patient is 77-year-old female came in today for her regular follow-up appointment Patient is in her usual state of health offer no new complaints Blood pressure is stable patient is taking lisinopril 40 mg , tolerating medication Hypo magnesemia:? Patient is on magnesium supplement she has been evaluated by a import/export specialist Her calcium level runs high we did parathyroid hormone level which came back normal? GERD:? Patient is on pantoprazole 20 mg and is doing well? Lipid disorder:? She has stopped taking simvastatin and does not want to take it She is taking care of number of animals at home. Lab order was placed Last time patient did not do it. Reminded again. She has a physical exam appointment next year in November she will return then. [facility] Surgical History History of section History of nasal surgery History of tubal ligation Hx of removal of ovary Mammogram normal Family History Father Ruptured aortic aneurysm Mother Myocardial infarction Son History of blood clots Social History Housing: Other (mobile home) Alcohol intake: current Alcohol intake frequency: 0-2 drinks per day Alcohol type: beer Patient Tobacco Use Status: Former Tobacco user Quit Date: quit 20 years ago e-Cigarette/Vaping Use: Never Used Current occupational status: retired Cognitive needs: No Hearing needs: No Vision needs: No Questionnaire Thrive Questionnaire Date Thrive assessed: 02/20/21 Review of Systems Const Denies chills and Denies fever(s) ENT Denies epistaxis and Denies nasal discharge Card Denies chest pain Resp Denies chest congestion, Denies cough and Denies hemoptysis GI Denies diarrhea and Denies nausea Skin/Breast Denies rash Neuro Reports no additional complaints Psych Reports no additional complaints Endo Reports no additional complaints Physical exam (Primary Care) Vital Signs: Last Vital Signs Pulse 60 04/20/23 12:27 BP 130/80 04/20/23 12:27 Pulse Ox 100 04/20/23 12:27 Oxygen Delivery Method Room Air 04/20/23 12:27 BMI result Body Mass Index 23.4 Tobacco/Smoking Status: Tobacco use Status Tobacco use date assessed 11/24/22 04/20/23 12:29 Patient Tobacco Use Status Former Tobacco user 04/20/23 12:29 e-Cigarette/Vaping Use Never Used 04/20/23 12:29 Thrive Assessment: Date of Thrive Assessment Date Thrive assessed 02/20/21 04/20/23 12:29 Const General: cooperative, comfortable and no acute distress Orientation/consciousness: patient oriented x3 HENMT Head: Yes normocephalic Eyes General: appearance normal, both eyes and all related structures Neck Neck: Yes supple Resp Effort & Inspection: normal respiratory effort, no cough and no stridor Cardio Rhythm: regular rhythm Heart sounds: S1 normal heart sound present and S2 normal heart sound present Back/Spine/Pelvis Other: Kyphosis present Skin General skin exam: turgor normal Neuro General: patient oriented x3, tone normal and moves all extremities Extrem Right lower extremity: no edema Left lower extremity: no edema Assessment and Plan Assessment & Plan (1) Benign essential HTN: Code(s): I10 - Essential (primary) hypertension (2) Lipid disorder: Code(s): E78.9 - Disorder of lipoprotein metabolism, unspecified (3) Chronic GERD: Code(s): K21.9 - Gastro-esophageal reflux disease without esophagitis (4) Low magnesium level: Code(s): R79.0 - Abnormal level of blood mineral (5) Kyphosis: Code(s): M40.209 - Unspecified kyphosis, site unspecified Plan Patient is 77-year-old female came in today for her regular follow-up appointment Patient is in her usual state of health offer no new complaints Blood pressure is stable patient is taking lisinopril 40 mg , tolerating medication Hypo magnesemia:? Patient is on magnesium supplement she has been evaluated by a import/export specialist Her calcium level runs high we did parathyroid hormone level which came back normal? GERD:? Patient is on pantoprazole 20 mg and is doing well? Lipid disorder:? She has stopped taking simvastatin and does not want to take it She is taking care of number of animals at home. Lab order was placed Last time patient did not do it. Reminded again. She has a physical exam appointment next year in November she will return then. Coding Level of Care Code Est Pt Level 4 (88755) Diagnoses Benign essential HTN I10 Lipid disorder E78.9 Chronic GERD K21.9 Low magnesium level R79.0 Kyphosis M40.209
[2023-04-20 12:27] VITALS: BP 130/80; PULSE 60; O2SAT 100; BMI 23.4
== END 2023-04-20 13:36 | disposition home or self-care (01) ==
PROVIDERS: PCP Internal Medicine; Visit Provider Internal Medicine
DX: I10 Essential (primary) hypertension (principal); E78.9 Disorder of lipoprotein metabolism, unspecified; K21.9 Gastro-esophageal reflux disease without esophagitis; R79.0 Abnormal level of blood mineral; M40.209 Unspecified kyphosis, site unspecified
CPT/HCPCS: 99214

== ENCOUNTER 2023-04-20 12:56 | Outpatient (REF) | payer MEDICARE, SELFPAY ==
[2023-04-20 15:59] LABS: MANUAL DIFF FLAG NO
[2023-04-20 16:12] LABS: Basophils Absolute Auto 0.1 X10*3/uL (0.0-0.2); Basophils Percent Auto 0.8 % (0-2); Eosinophils Absolute Auto 0.1 X10*3/uL (0.0-0.4); Eosinophils Percent Auto 1.4 % (0-4); Hemoglobin 12.6 g/dl (12.0-16.0); Imm Gran Abs Auto 0.06 X10*3/uL (0.00-0.03); Lymphocytes Absolute Auto 1.1 X10*3/uL (1.2-4.9); Lymphocytes Percent Auto 17.1 % (20-40); Mean Corpuscular HGB Conc 34.1 g/dl (31.0-35.0); Mean Corpuscular Hemoglobin 29.9 pg (27.0-33.0); Mean Corpuscular Volume 87.7 fL (80.0-98.0); Mean Platelet Volume 8.8 fL (9.4-12.3); Monocytes Absolute Auto 0.6 X10*3/uL (0.1-1.2); Monocytes Percent Auto 8.8 % (2-11); Neutrophils Absolute Auto 4.4 x10*3/uL (2.0-8.3); Neutrophils Percent Auto 70.9 % (45-73); Platelet Count 417 X10*3/uL (160-400); Red Blood Count 4.22 X10*6/uL (4.20-5.50); Red Cell Distribution Width 13.3 % (11.0-16.0); White Blood Count 6.2 X10*3/uL (4.8-10.8)
[2023-04-20 16:26] LABS: Alanine Aminotransferase 14 U/L (0-31); Albumin Level 4.2 g/dL (3.5-5.0); Alkaline Phosphatase 83 U/L (39-117); Anion Gap 13 (12-20); Aspartate Amino Transferase 22 U/L (5-31); Bilirubin Total 0.6 mg/dL (0.0-1.0); Blood Urea Nitrogen 14 mg/dL (9-16); Calcium 9.7 mg/dL (8.4-10.2); Carbon Dioxide 26 mmol/L (22-29); Chloride 97 mmol/L (96-108); Estimated Glomerular Filt Rate > 60; Glucose Random 99 mg/dL (60-115); Magnesium 1.7 mg/dL (1.6-2.6); Potassium 4.2 mmol/L (3.3-5.1); Sodium 132 mmol/L (135-145); Total Protein 7.6 g/dL (6.5-8.0)
[2023-04-21 08:32] LABS: LDL Cholesterol Direct 121 mg/dL (<100)
== END 2023-04-20 12:57 | disposition home or self-care (01) ==
LOC: HO.HMGCLDS 12:56
PROVIDERS: PCP Internal Medicine; Visit Provider Internal Medicine
DX: Z00.01 Encounter for general adult medical examination with abnormal findings (principal); E78.9 Disorder of lipoprotein metabolism, unspecified; I10 Essential (primary) hypertension; K21.9 Gastro-esophageal reflux disease without esophagitis; R79.0 Abnormal level of blood mineral
CPT/HCPCS: 36415; 80053; 83721; 83735; 85025

== ENCOUNTER 2024-01-27 11:17 | Outpatient (AMB) | payer MEDICARE, SELFPAY ==
--- NOTE | 2024-01-27 11:19 | MHC.PC.OV ---
Vital Signs 01/27/24 11:21 Height 5 ft 2 in Weight 124 lb BMI 22.7 BP 130/90 H Blood Pressure Location Lt brachial Position Sitting Pulse 77 Pulse Source Pulse Oximeter Pulse Oximetry (%) 96 Oxygen Delivery Method Room Air Intake Visit Reasons: Annual PE Allergies meperidine [From DEMEROL] Allergy (Intermediate, Verified 01/27/24 11:21) DRY HEAVES Sulfa (Sulfonamide Antibiotics) Allergy (Unknown, Verified 01/27/24 11:21) rash sulfamethoxazole [From BACTRIM] Allergy (Unknown, Verified 01/27/24 11:21) RASH trimethoprim [From BACTRIM] Allergy (Unknown, Verified 01/27/24 11:21) RASH bee Allergy (Unknown, Uncoded 01/27/24 11:21) anaphylaxis Bee stings Allergy (Unknown, Uncoded 01/27/24 11:21) anaphylaxis Wasps/fire ants Allergy (Unknown, Uncoded 01/27/24 11:21) anaphylaxis Hydrochlorothiazide Adverse Reaction (Mild, Uncoded 01/27/24 11:21) Lightheadedness Medication List - Last Reconciled 01/27/24 by Daphne Fraga MD aspirin (Adult Low Dose Aspirin) 81 mg PO DAILY lisinopril 40 mg PO DAILY magnesium oxide 400 mg PO DAILY 90 days pantoprazole 20 mg PO DAILY 30 days Tobacco use date assessed: 01/27/24 Fall risk assessment: No Falls in past year Last assessed Fall Risk: 01/27/24 Dental Screening Dental Screen Date: 01/27/24 Was dental information given to patient?: Patient declined HPI Annual PE HPI Details Patient is 78-year-old female came in today for physical exam Patient is in her usual state of health Taking her medications, blood pressure is slightly elevated diastolic She is on lisinopril 20 mg Chronic GERD stable with pantoprazole 20 mg She also have a chronically low magnesium and is on supplement Due for labs Patient have chronically low sodium as well Declined to do mammogram Declined to do colonoscopy Has not seen OBGYN in a while and does not want to see one. On examination patient has some instability of gait, she failed Romberg and tandem walk, patient have a history of alcohol use throughout her life, still drinking 1 beer every day We talked about stopping that, most likely the cause of low-sodium She also have a kyphosis and scoliosis. Knee examination shows also arthritic changes Patient is to return in 6 months for follow-up 1 year physical exam [facility] Surgical History History of nasal surgery Hx of removal of ovary History of tubal ligation History of section Mammogram normal Family History Father Ruptured aortic aneurysm Mother Myocardial infarction Son History of blood clots Social History Housing: Other Alcohol intake: current Alcohol intake frequency: 0-2 drinks per day Alcohol type: beer Patient Tobacco Use Status: Former Tobacco user Quit Date: quit 20 years ago e-Cigarette/Vaping Use: Never Used Current occupational status: retired Cognitive needs: No Hearing needs: No Vision needs: No Questionnaire PHQ-9 Over the last 2 weeks, how often have you been bothered by any of the following problems? 1. Little interest or pleasure in doing things: not at all 2. Feeling down, depressed, or hopeless: not at all 3. Trouble falling or staying asleep, or sleeping too much: not at all 4. Feeling tired or having little energy: not at all 5. Poor appetite or overeating: not at all 6. Feeling bad about yourself - or that you are a failure or have let yourself or your family down: not at all 7. Trouble concentrating on things, such as reading the newspaper or watching television: not at all 8. Moving or speaking so slowly that other people could have noticed. Or the opposite - being so fidgety or restless that you have been moving around a lot more than usual: not at all 9. Thoughts that you would be better off or of hurting yourself in some way: not at all Total score: 0 Depression Screening Interpretation: Negative Depression Screening Done: Yes 48471 - PHQ-9 Billing: Yes Source: Developed by Drs. Carmelo Montgomery, Marilou Wright, Alex Velez and colleagues, with an educational jose from [employer]. Thrive Questionnaire Date Thrive assessed: 02/20/21 AUDIT C Alcohol Use Questionnaire (AUDIT-C) 1. How often do you have a drink containing alcohol?: Never 3. How often do you have six or more drinks on one occasion?: Never Total Score: 0 Score Reviewed/Action Taken: No Review of Systems Const Denies chills, Denies fever(s) and Denies headache(s) Eyes Denies blurry vision ENT Denies headache(s), Denies nasal discharge, Denies nasal obstruction, Denies odynophagia and Denies sinus pain Card Denies chest pain at rest and Denies chest pain with activity Resp Denies cough and Denies hemoptysis GI Denies diarrhea, Denies odynophagia, Denies vomiting and Denies hematemesis Reports as per HPI Skin/Breast Reports as per HPI Neuro Denies Neuro-related abnormal movements, Denies Abnormal speech present and Denies headache(s) Psych Denies mood swings and Denies paranoia Endo Reports as per HPI Jesús/Lymph Reports as per HPI Aller/Immun Reports as per HPI Physical exam (Primary Care) Vital Signs: Last Vital Signs Pulse 77 01/27/24 11:21 BP 130/90 H 01/27/24 11:21 Pulse Ox 96 01/27/24 11:21 Oxygen Delivery Method Room Air 01/27/24 11:21 BMI result Body Mass Index 22.7 Tobacco/Smoking Status: Tobacco use Status Tobacco use date assessed 01/27/24 01/27/24 11:24 Patient Tobacco Use Status Former Tobacco user 01/27/24 11:21 e-Cigarette/Vaping Use Never Used 01/27/24 11:21 Depression Screening Interpretation: Negative Thrive Assessment: Date of Thrive Assessment Date Thrive assessed 02/20/21 01/27/24 11:21 Const General: cooperative, comfortable and no acute distress Orientation/consciousness: patient oriented x3 HENMT Head: Yes normocephalic and Yes atraumatic Eyes General: appearance normal, both eyes and all related structures Pupils: Equal, round and reactive pupils present EOM: EOMs intact bilaterally Neck Neck: Yes supple and No lymphadenopathy Thyroid: Thyroid normal Lymphatic: no lymphadenopathy noted Chest Breast/axilla palpation: normal palpation of the breasts Resp Effort & Inspection: normal respiratory effort and able to speak in complete sentences Auscultation: clear to auscultation bilaterally Cardio Heart sounds: S1 normal heart sound present and S2 normal heart sound present GI Palpation (GI): Soft to palpation and nontender Auscultation: normal bowel sounds General: Yes no CVA tenderness Back/Spine/Pelvis Other: Kyphosis as well as scoliosis present Back: no CVA tenderness Skin General skin exam: elasticity normal and turgor normal Neuro Other: Romberg failed, tandem walk failed General: patient oriented x3 and gait normal Cranial nerves: Yes Equal, round and reactive pupils present Speech: No Abnormal speech present Extrem Other: Severe osteoarthritic changes both knees General: Yes normal exam except as noted and No edema Assessment and Plan Assessment & Plan (1) Adult general medical exam: Code(s): Z00.00 - Encounter for general adult medical examination without abnormal findings (2) Benign essential HTN: Code(s): I10 - Essential (primary) hypertension (3) Lipid disorder: Code(s): E78.9 - Disorder of lipoprotein metabolism, unspecified (4) Chronic GERD: Code(s): K21.9 - Gastro-esophageal reflux disease without esophagitis (5) Low sodium levels: Code(s): E87.1 - Hypo-osmolality and hyponatremia (6) Kyphosis: Code(s): M40.209 - Unspecified kyphosis, site unspecified Qualifiers: Kyphosis type: postural Spinal region: cervicothoracic Qualified Code(s): M40.03 - Postural kyphosis, cervicothoracic region (7) Low magnesium level: Code(s): R79.0 - Abnormal level of blood mineral (8) Abnormal tandem walk: Code(s): R26.9 - Unspecified abnormalities of gait and mobility Plan Patient is 78-year-old female came in today for physical exam Patient is in her usual state of health Taking her medications, blood pressure is slightly elevated diastolic She is on lisinopril 20 mg Chronic GERD stable with pantoprazole 20 mg She also have a chronically low magnesium and is on supplement Due for labs Patient have chronically low sodium as well Declined to do mammogram Declined to do colonoscopy Has not seen OBGYN in a while and does not want to see one. On examination patient has some instability of gait, she failed Romberg and tandem walk, patient have a history of alcohol use throughout her life, still drinking 1 beer every day We talked about stopping that, most likely the cause of low-sodium She also have a kyphosis and scoliosis. Knee examination shows also arthritic changes Patient is to return in 6 months for follow-up 1 year physical exam Orders: Orders Comprehensive Met. Panel Today E78.9 - Disorder of lipoprotein metabolism, unspecified, E87.1 - Hypo-osmolality and hyponatremia, I10 - Essential (primary) hypertension, K21.9 - Gastro-esophageal reflux disease without esophagitis, M40.209 - Unspecified kyphosis, site unspecified TSH reflex Free T4 Today E78.9 - Disorder of lipoprotein metabolism, unspecified, E87.1 - Hypo-osmolality and hyponatremia, I10 - Essential (primary) hypertension, K21.9 - Gastro-esophageal reflux disease without esophagitis, M40.209 - Unspecified kyphosis, site unspecified Vitamin D 25-OH (D2 and D3) Today E78.9 - Disorder of lipoprotein metabolism, unspecified, E87.1 - Hypo-osmolality and hyponatremia, I10 - Essential (primary) hypertension, K21.9 - Gastro-esophageal reflux disease without esophagitis, M40.209 - Unspecified kyphosis, site unspecified LDL Cholesterol Direct Today E78.9 - Disorder of lipoprotein metabolism, unspecified, E87.1 - Hypo-osmolality and hyponatremia, I10 - Essential (primary) hypertension, K21.9 - Gastro-esophageal reflux disease without esophagitis, M40.209 - Unspecified kyphosis, site unspecified Magnesium Today R79.0 - Abnormal level of blood mineral Complete Blood Count Auto Diff Today E78.9 - Disorder of lipoprotein metabolism, unspecified, E87.1 - Hypo-osmolality and hyponatremia, I10 - Essential (primary) hypertension, K21.9 - Gastro-esophageal reflux disease without esophagitis, M40.209 - Unspecified kyphosis, site unspecified Medications: New aspirin (Adult Low Dose Aspirin) 81 mg PO DAILY 90 tabs 1RF Changed From pantoprazole 20 mg PO DAILY 30 days 30 tabs 0RF To pantoprazole 20 mg PO DAILY 90 tabs 1RF 90 days Refilled lisinopril 40 mg PO DAILY 90 tabs 1RF magnesium oxide 400 mg PO DAILY 90 tabs 1RF 90 days Coding Level of Care Code Est Pt Prev Care >65y(06561) Diagnoses Adult general medical exam Z00.00 Benign essential HTN I10 Lipid disorder E78.9 Chronic GERD K21.9 Low sodium levels E87.1 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 Kyphosis type: postural Spinal region: cervicothoracic Low magnesium level R79.0 Abnormal tandem walk R26.9
[2024-01-27 11:21] VITALS: BP 130/90; PULSE 77; O2SAT 96; BMI 22.7
== END 2024-01-27 11:49 | disposition home or self-care (01) ==
PROVIDERS: PCP Internal Medicine; Visit Provider Internal Medicine
DX: Z00.00 Encounter for general adult medical examination without abnormal findings (principal); I10 Essential (primary) hypertension; E78.9 Disorder of lipoprotein metabolism, unspecified; K21.9 Gastro-esophageal reflux disease without esophagitis; E87.1 Hypo-osmolality and hyponatremia; M40.03 Postural kyphosis, cervicothoracic region; R79.0 Abnormal level of blood mineral; R26.9 Unspecified abnormalities of gait and mobility
CPT/HCPCS: 99397

== ENCOUNTER 2024-01-27 11:52 | Outpatient (REF) | payer MEDICARE, SELFPAY ==
[2024-01-27 13:14] LABS: MANUAL DIFF FLAG NO
[2024-01-27 13:32] LABS: Basophils Percent Auto 0.5 % (0-2); Eosinophils Absolute Auto 0.1 X10*3/uL (0.0-0.4); Eosinophils Percent Auto 1.4 % (0-4); Hematocrit 40.9 % (37.0-47.0); Hemoglobin 13.7 g/dl (12.0-16.0); Imm Gran Abs Auto 0.06 X10*3/uL (0.00-0.03); Lymphocytes Absolute Auto 1.3 X10*3/uL (1.2-4.9); Lymphocytes Percent Auto 21.1 % (20-40); Mean Corpuscular HGB Conc 33.5 g/dl (31.0-35.0); Mean Corpuscular Hemoglobin 30.1 pg (27.0-33.0); Mean Corpuscular Volume 89.9 fL (80.0-98.0); Mean Platelet Volume 8.9 fL (9.4-12.3); Monocytes Absolute Auto 0.5 X10*3/uL (0.1-1.2); Monocytes Percent Auto 7.8 % (2-11); Neutrophils Absolute Auto 4.3 x10*3/uL (2.0-8.3); Neutrophils Percent Auto 68.2 % (45-73); Platelet Count 341 X10*3/uL (160-400); Red Blood Count 4.55 X10*6/uL (4.20-5.50); Red Cell Distribution Width 13.7 % (11.0-16.0); White Blood Count 6.3 X10*3/uL (4.8-10.8)
[2024-01-27 14:08] LABS: Alanine Aminotransferase 11 U/L (0-31); Albumin Level 4.3 g/dL (3.5-5.0); Alkaline Phosphatase 89 U/L (39-117); Anion Gap 14 (12-20); Aspartate Amino Transferase 17 U/L (5-31); Bilirubin Total 0.7 mg/dL (0.0-1.0); Blood Urea Nitrogen 18 mg/dL (9-16); Calcium 9.9 mg/dL (8.4-10.2); Carbon Dioxide 26 mmol/L (22-29); Chloride 99 mmol/L (96-108); Estimated Glomerular Filt Rate > 60; Glucose Random 79 mg/dL (60-115); Magnesium 1.6 mg/dL (1.6-2.6); Sodium 135 mmol/L (135-145); Total Protein 7.7 g/dL (6.5-8.0)
[2024-01-27 14:24] LABS: TSH reflex Free T4 2.66 uIU/mL (0.32-4.0)
[2024-01-28 11:09] LABS: LDL Cholesterol Direct 128 mg/dL (<100)
[2024-02-01 13:33] LABS: Vitamin D 25-OH, D2 <4 ng/mL; Vitamin D 25-OH, D3 6 ng/mL; Vitamin D 25-OH, Total 6 ng/mL (30-100)
== END 2024-01-27 11:53 | disposition home or self-care (01) ==
LOC: HO.HMGCLDS 11:52
PROVIDERS: PCP Internal Medicine; Visit Provider Internal Medicine
DX: E87.1 Hypo-osmolality and hyponatremia (principal); I10 Essential (primary) hypertension; E78.9 Disorder of lipoprotein metabolism, unspecified; K21.9 Gastro-esophageal reflux disease without esophagitis; M40.209 Unspecified kyphosis, site unspecified; R79.0 Abnormal level of blood mineral
CPT/HCPCS: 36415; 80053; 82306; 83721; 83735; 84443; 85025

== ENCOUNTER 2024-07-27 11:18 | Outpatient (AMB) | payer MEDICARE, SELFPAY ==
[2024-07-27 11:20] VITALS: BP 148/82; PULSE 69; O2SAT 97; BMI 21.6
--- NOTE | 2024-07-27 11:20 | A.OFFPC_ITS ---
Vital Signs 07/27/24 11:20 Height 5 ft 2 in Weight 118 lb 4 oz BMI 21.6 BP 148/82 H Blood Pressure Location Lt brachial Position Sitting Pulse 69 Pulse Source Pulse Oximeter Pulse Oximetry (%) 97 Oxygen Delivery Method Room Air Intake Visit Reasons: Tue f/u Allergies meperidine [From DEMEROL] Allergy (Intermediate, Verified 07/27/24 11:20) DRY HEAVES Sulfa (Sulfonamide Antibiotics) Allergy (Unknown, Verified 07/27/24 11:20) rash sulfamethoxazole [From BACTRIM] Allergy (Unknown, Verified 07/27/24 11:20) RASH trimethoprim [From BACTRIM] Allergy (Unknown, Verified 07/27/24 11:20) RASH bee Allergy (Unknown, Uncoded 01/27/24 11:21) anaphylaxis Bee stings Allergy (Unknown, Uncoded 01/27/24 11:21) anaphylaxis Wasps/fire ants Allergy (Unknown, Uncoded 01/27/24 11:21) anaphylaxis Hydrochlorothiazide Adverse Reaction (Mild, Uncoded 01/27/24 11:21) Lightheadedness Medication List - Last Reconciled 07/27/24 by Daphne Fraga MD aspirin (Adult Low Dose Aspirin) 81 mg PO DAILY lisinopril 40 mg PO DAILY magnesium oxide 400 mg PO DAILY 90 days pantoprazole 20 mg PO DAILY 90 days Tobacco use date assessed: 07/27/24 Fall risk assessment: No Falls in past year Last assessed Fall Risk: 07/27/24 Dental Screening Dental Screen Date: 07/27/24 Did you have a dental visit in the last 12 months?: No Did you have a dental problem in the last 6 months where you did not have access to dental care?: No Was dental information given to patient?: No HPI Tue f/u HPI Details Chief Complaint High blood pressure and the medical problems Assessment and Plan 79-year-old female with a history of ess ential hypertension and chronic gastroesophageal reflux disease (GERD) presenting with high blood pressure and weight loss. The patient's blood pressure today is elevated at 148/84 mmHg, likely due to missed medication adherence. I noticed that patient has been losing weight with no intentional dietary restrictions. The patient denies gastrointestinal symptoms or discomfort impacting appetite but describes decreased interest in traditional meals. Additionally, there is low vitamin D, indicating the need for supplementation. The patient's recent food habits and possible taste changes with aging may contribute to the weight loss. She continues to manage gastrointestinal symptoms with pantoprazole and magnesium oxide. The deviated nasal septum might cause olfactory disturbances, affecting appetite or weight. 1. Weight Loss Of Unknown Etiology Continued monitoring of weight and nutritional intake is essential. Encourage consumption of balanced meals with adequate caloric intake. Evaluate the need for further investigation if weight loss persists despite dietary adjustments. A re-evaluation in three to four months is warranted to assess weight changes and consider additional diagnostic workup if significant loss continues. 2. Deviated Nasal Septum No immediate intervention is planned for the deviated septum, but address olfactory symptoms if significant. Discuss with the patient the potential impact on her taste and mealtime choices. 3. Essential Hypertension The patient acknowledges occasional non-adherence to lisinopril, which may contribute to elevated blood pressure. Emphasize the importance of daily antihypertensive medication to achieve blood pressure control. Continue current lisinopril therapy and monitor blood pressure regularly. Assessing the impact of diet on hypertension management, especially salt intake, remains critical. Follow-up blood pressure monitoring is suggested. 4. Vitamin D Deficiency Initiate vitamin D supplementation as the patient reports no current intake. Regular monitoring of vitamin D levels is necessary to adjust the dose and ensure sufficiency. 5. Gastro-esophageal reflux disease with out esophagitis K21.9 Continue current treatment with pantoprazole. Monitor symptoms and adjust the therapeutic approach if reflux symptoms worsen. Encourage small and frequent meals to aid in symptom management. Problem List - Essential Hypertension - Vitamin D Deficiency - Weight Loss of Unknown Etiology - Deviated Nasal Septum - Chronic Gastroesophageal Reflux Diseas e (GERD) Patient Instructions - Ensure strict adherence to prescribed antihypertensive medications. - Initiate vitamin D supplementation clif marcos as discussed. - Increase caloric intake through balanc ed meals to address unexplained weight loss. - Return in three to four months for fol low-up evaluation of weight and overall health. - Report any new or worsening symptoms, particularly related to blood pressure, weight changes, or gastrointestinal discomfort. - Consider simple at-home meal preparati ons that align with dietary preferences to maintain weight. - Maintain regular check-ups to monitor and address all current health issues. Follow-up early November Labs are needed today [facility] Surgical History History of nasal surgery Hx of removal of ovary History of tubal ligation History of section Mammogram normal Family History Father Ruptured aortic aneurysm Mother Myocardial infarction Son History of blood clots Social History Housing: Other Alcohol intake: current Alcohol intake frequency: 0-2 drinks per day Alcohol type: beer Patient Tobacco Use Status: Former Tobacco user e-Cigarette/Vaping Use: Never Used Current occupational status: retired Cognitive needs: No Hearing needs: No Vision needs: No Questionnaire PHQ-9 Over the last 2 weeks, how often have you been bothered by any of the following problems? 1. Little interest or pleasure in doing things: not at all 2. Feeling down, depressed, or hopeless: not at all 3. Trouble falling or staying asleep, or sleeping too much: not at all 4. Feeling tired or having little energy: not at all 5. Poor appetite or overeating: not at all 6. Feeling bad about yourself - or that you are a failure or have let yourself or your family down: not at all 7. Trouble concentrating on things, such as reading the newspaper or watching television: not at all 8. Moving or speaking so slowly that other people could have noticed. Or the opposite - being so fidgety or restless that you have been moving around a lot more than usual: not at all 9. Thoughts that you would be better off or of hurting yourself in some way: not at all Total score: 0 Depression Screening Interpretation: Negative Depression Screening Done: Yes 72332 - PHQ-9 Billing: Yes Source: Developed by Drs. Carmelo Montgomery, Marilou Wright, Alex Velez and colleagues, with an educational jose from [employer]. Thrive Questionnaire Date Thrive assessed: 07/27/24 I am a: Patient What is your living situation today?: I have a steady place to live Within the past 12 months, did the food you bought not last and you didn't have the money to get more?: Never true Within the past 12 months, did you worry whether your food would run out before you got money to buy more?: Never true Do you have trouble paying for medicines?: No Do you have trouble getting transportation to medical appointments?: No Do you have trouble paying your heating and electricity bill?: No Do you have trouble taking care of your child, family member or friend?: No Do you have trouble with day-to-day activities such as bathing, preparing meals, shopping, managing finances, etc.?: No Are you currently unemployed and looking for a job?: No Are you interested in more education?: No Please select the resources that you would like help with: None THRIVE Score: 0 AUDIT C Alcohol Use Questionnaire (AUDIT-C) 1. How often do you have a drink containing alcohol?: Never 3. How often do you have six or more drinks on one occasion?: Never Total Score: 0 Score Reviewed/Action Taken: Yes MATTI-7 AMB Questionnaire MATTI-7 Date MATTI - 7 assessed: 07/27/24 Feeling nervous, anxious, or on edge: 0 = Not at all Not being able to stop or control worryin = Not at all Worrying too much about different things: 0 = Not at all Trouble relaxin = Not at all Being so restless that it is hard to sit still: 0 = Not at all Becoming easily annoyed or irritable: 0 = Not at all Feeling afraid as if something awful might happen: 0 = Not at all Total MATTI-7 score (0-4 normal; 5-9 mild; 10-14 moderate; 15-21 severe): 0 Source: Developed by Drs. Carmelo Montgomery, Marilou Wright, Alex Velez and colleagues, with an educational jose from [employer]. MATTI-7 Assessment Billing MATTI-7 Assessment Tool: MATTI-7 Assessment 20569 Review of Systems Const Denies chills and Denies fever(s) ENT Denies epistaxis and Denies nasal discharge Card Denies chest pain Resp Denies chest congestion, Denies cough and Denies hemoptysis GI Denies diarrhea and Denies nausea Skin/Breast Denies rash Neuro Reports no additional complaints Psych Reports no additional complaints Endo Reports no additional complaints Physical exam (Primary Care) Vital Signs: Last Vital Signs Pulse 69 07/27/24 11:20 BP 148/82 H 07/27/24 11:20 Pulse Ox 97 07/27/24 11:20 Oxygen Delivery Method Room Air 07/27/24 11:20 BMI result Body Mass Index 21.6 Tobacco/Smoking Status: Tobacco use Status Tobacco use date assessed 07/27/24 07/27/24 11:23 Patient Tobacco Use Status Former Tobacco user 07/27/24 11:23 e-Cigarette/Vaping Use Never Used 07/27/24 11:23 PHQ-9: PHQ-9 Score PHQ-9: Total score 0 07/27/24 11:28 Depression Screening Interpretation: Negative Thrive Assessment: Date of Thrive Assessment Date Thrive assessed 07/27/24 07/27/24 11:28 Const General: cooperative, comfortable and no acute distress Orientation/consciousness: patient oriented x3 HENMT Head: Yes normocephalic Eyes General: appearance normal, both eyes and all related structures Neck Neck: Yes supple Resp Effort & Inspection: normal respiratory effort, no cough and no stridor Cardio Rhythm: regular rhythm Heart sounds: S1 normal heart sound present and S2 normal heart sound present Skin General skin exam: turgor normal Neuro General: patient oriented x3, tone normal and moves all extremities Extrem Right lower extremity: no edema Left lower extremity: no edema Coding Level of Care Code Est Pt Level 4 (20361) Complex EM visit Add On G2211 Diagnoses Benign essential HTN I10 Chronic GERD K21.9 Lipid disorder E78.9 Low magnesium level R79.0 Vitamin D deficiency E55.9 Additional Codes MATTI-7 Assessment Billing - MATTI-7 Assessment Tool: MATTI-7 Assessment 62382 ([id number]) PHQ-9 - 98467 - PHQ-9 Billing: Yes ([id number]) Assessment & Plan Assessment & Plan (1) Benign essential HTN: Code(s): I10 - Essential (primary) hypertension Category: Medical (2) Chronic GERD: Code(s): K21.9 - Gastro-esophageal reflux disease without esophagitis Category: Medical (3) Lipid disorder: Code(s): E78.9 - Disorder of lipoprotein metabolism, unspecified Category: Medical (4) Low magnesium level: Code(s): R79.0 - Abnormal level of blood mineral Category: Medical (5) Vitamin D deficiency: Code(s): E55.9 - Vitamin D deficiency, unspecified Category: Medical Plan Chief Complaint High blood pressure and the medical problems Assessment and Plan 79-year-old female with a history of essential hypertension and chronic gastroesophageal reflux disease (GERD) presenting with high blood pressure and weight loss. The patient's blood pressure today is elevated at 148/84 mmHg, likely due to missed medication adherence. I noticed that patient has been losing weight with no intentional dietary restrictions. The patient denies gastrointestinal symptoms or discomfort impacting appetite but describes decreased interest in traditional meals. Additionally, there is low vitamin D, indicating the need for supplementation. The patient's recent food habits and possible taste changes with aging may contribute to the weight loss. She crystal nues to manage gastrointestinal symptoms with pantoprazole and magnesium oxide. The deviated nasal septum might cause olfactory disturbances, affecting appetite or weight. 1. Weight Loss Of Unknown Etiology Continued monitoring of weight and nutritional intake is essential. Encourage consumption of balanced meals with adequate caloric intake. Evaluate the need for further investigation if weight loss persists despite dietary adjustments. A re-evaluation in three to four months is warranted to assess weight changes and consider additional diagnostic workup if significant loss continues. 2. Deviated Nasal Septum No immediate intervention is planned for the deviated septum, but address olfactory symptoms if significant. Discuss with the patient the potential impact on her taste and mealtime choices. 3. Essential Hypertension The patient acknowledges occasional non-adherence to lisinopril, which may contribute to elevated blood pressure. Emphasize the importance of daily antihypertensive medication to achieve blood pressure control. Continue current lisinopril therapy and monitor blood pressure regularly. Assessing the impact of diet on hypertension management, especially salt intake, remains critical. Follow-up blood pressure monitoring is suggested. 4. Vitamin D Deficiency Initiate vitamin D supplementation as the patient reports no current intake. Regular monitoring of vitamin D levels is necessary to adjust the dose and ensure sufficiency. 5. Gastro-esophageal reflux disease without esophagitis K21.9 Continue current treatment with pantoprazole. Monitor symptoms and adjust the therapeutic approach if reflux symptoms worsen. Encourage small and frequent meals to aid in symptom management. Problem List - Essential Hypertension - Vitamin D Deficiency - Weight Loss of Unknown Etiology - Deviated Nasal Septum - Chronic Gastroesophageal Reflux Disease (GERD) Patient Instructions - Ensure strict adherence to prescribed antihypertensive medications. - Initiate vitamin D supplementation daily as discussed. - Increase caloric intake through balanced meals to address unexplained weight loss. - Return in three to four months for follow-up evaluation of weight and overall health. - Report any new or worsening symptoms, particularly related to blood pressure, weight changes, or gastrointestinal discomfort. - Consider simple at-home meal preparations that align with dietary preferences to maintain weight. - Maintain regular check-ups to monitor and address all current health issues. Follow-up early November Labs are needed today Orders: Orders Comprehensive Met. Panel Today E55.9 - Vitamin D deficiency, unspecified, E78.9 - Disorder of lipoprotein metabolism, unspecified, I10 - Essential (primary) hypertension, K21.9 - Gastro-esophageal reflux disease without esophagitis, R79.0 - Abnormal level of blood mineral Magnesium Today E55.9 - Vitamin D deficiency, unspecified, E78.9 - Disorder of lipoprotein metabolism, unspecified, I10 - Essential (primary) hypertension, K21.9 - Gastro-esophageal reflux disease without esophagitis, R79.0 - Abnormal level of blood mineral Vitamin D 25-OH (D2 and D3) Today E55.9 - Vitamin D deficiency, unspecified, E78.9 - Disorder of lipoprotein metabolism, unspecified, I10 - Essential (primary) hypertension, K21.9 - Gastro-esophageal reflux disease without esophagitis, R79.0 - Abnormal level of blood mineral Complete Blood Count Auto Diff Today E55.9 - Vitamin D deficiency, unspecified, E78.9 - Disorder of lipoprotein metabolism, unspecified, I10 - Essential (primary) hypertension, K21.9 - Gastro-esophageal reflux disease without esophagitis, R79.0 - Abnormal level of blood mineral LDL Cholesterol Direct Today E55.9 - Vitamin D deficiency, unspecified, E78.9 - Disorder of lipoprotein metabolism, unspecified, I10 - Essential (primary) hypertension, K21.9 - Gastro-esophageal reflux disease without esophagitis, R79.0 - Abnormal level of blood mineral Vitamin B12 Today E55.9 - Vitamin D deficiency, unspecified, E78.9 - Disorder of lipoprotein metabolism, unspecified, I10 - Essential (primary) hypertension, K21.9 - Gastro-esophageal reflux disease without esophagitis, R79.0 - Abnormal level of blood mineral TSH reflex Free T4 Today E55.9 - Vitamin D deficiency, unspecified, E78.9 - Disorder of lipoprotein metabolism, unspecified, I10 - Essential (primary) hypertension, K21.9 - Gastro-esophageal reflux disease without esophagitis, R79.0 - Abnormal level of blood mineral Medications: New cholecalciferol (vitamin D3) 25 mcg PO DAILY 90 days 90 caps 1RF
== END 2024-07-27 11:53 | disposition home or self-care (01) ==
PROVIDERS: PCP Internal Medicine; Visit Provider Internal Medicine
DX: I10 Essential (primary) hypertension (principal); K21.9 Gastro-esophageal reflux disease without esophagitis; E78.9 Disorder of lipoprotein metabolism, unspecified; R79.0 Abnormal level of blood mineral; E55.9 Vitamin D deficiency, unspecified

== ENCOUNTER → 2024-07-27 11:18 | Outpatient (BNVA) | payer MEDICARE, SELFPAY | PROVIDERS: PCP Internal Medicine; Visit Provider Internal Medicine | DX: I10 Essential (primary) hypertension (principal); K21.9 Gastro-esophageal reflux disease without esophagitis; E78.9 Disorder of lipoprotein metabolism, unspecified; R79.0 Abnormal level of blood mineral; E55.9 Vitamin D deficiency, unspecified | CPT/HCPCS: 96127; 99212 ==

== ENCOUNTER 2024-11-27 11:10 | Outpatient (AMB) | payer MEDICARE, SELFPAY ==
[2024-11-27 11:14] VITALS: BP 136/88; PULSE 81; O2SAT 98; BMI 22.3
--- NOTE | 2024-11-27 11:14 | A.OFFPC_ITS ---
Vital Signs 11/27/24 11:14 Height 5 ft 2 in Weight 122 lb 2 oz BMI 22.3 BP 136/88 Blood Pressure Location Lt brachial Position Sitting Pulse 81 Pulse Source Pulse Oximeter Pulse Oximetry (%) 98 Oxygen Delivery Method Room Air Intake Visit Reasons: 4 months follow up Allergies meperidine [From DEMEROL] Allergy (Intermediate, Verified 11/27/24 11:19) DRY HEAVES Sulfa (Sulfonamide Antibiotics) Allergy (Unknown, Verified 11/27/24 11:19) rash sulfamethoxazole [From BACTRIM] Allergy (Unknown, Verified 11/27/24 11:19) RASH trimethoprim [From BACTRIM] Allergy (Unknown, Verified 11/27/24 11:19) RASH bee Allergy (Unknown, Uncoded 01/27/24 11:21) anaphylaxis Bee stings Allergy (Unknown, Uncoded 01/27/24 11:21) anaphylaxis Wasps/fire ants Allergy (Unknown, Uncoded 01/27/24 11:21) anaphylaxis Hydrochlorothiazide Adverse Reaction (Mild, Uncoded 01/27/24 11:21) Lightheadedness Medication List - Last Reconciled 11/27/24 by Daphne Fraga MD aspirin (Adult Low Dose Aspirin) 81 mg PO DAILY cholecalciferol (vitamin D3) 25 mcg PO DAILY 90 days lisinopril 40 mg PO DAILY magnesium oxide 400 mg PO DAILY 90 days pantoprazole 20 mg PO DAILY 90 days Tobacco use date assessed: 11/27/24 Fall risk assessment: No Falls in past year Last assessed Fall Risk: 11/27/24 Dental Screening Dental Screen Date: 11/27/24 Did you have a dental visit in the last 12 months?: No Did you have a dental problem in the last 6 months where you did not have access to dental care?: No Was dental information given to patient?: Patient declined HPI 4 months follow up HPI Details History - The patient is a 79-year-old female pr esenting with a follow-up for blood pressure management and medication monitoring. - The patient has a history of essential hypertension, currently managed on Lisinopril, reporting her blood pressure is at 136 today. - She suffers from a deviated nasal sept um, resulting in occasional nasal congestion and discharge, with no fever or cough reported. - The patient is on Pantoprazole for MARIAH D, with Magnesium and Vitamin D3 supplementation. - Laboratory tests for kidney and liver functions were scheduled but previously neglected and need completion today. Problem List - Deviated Nasal Septum - Essential Hypertension - Gastroesophageal Reflux Disease (GERD) Patient Instructions - Complete the blood test today as previ ously ordered. - Continue taking your prescribed medica tions: Lisinopril, Pantoprazole, Magnesium, and Vitamin D3 as instructed. - Proceed to the laboratory today withou t any additional stops. Review of Systems - General: No fever no chills - Neurological: No headaches no dizziness - Ear nose throat: No sore throat no hearing difficulty no ear pain - Cardiovascular: No syncope, no chest pain, no palpitations - Gastrointestinal: No nausea vomiting or diarrhea - Endocrine: No polyuria polydipsia no heat intolerance - Genitourinary: No dysuria , no blood in urine Physical Exam General: No acute distress HEENT: Deviated septum Neck: Supple Respiratory system: Able to talk in full sentences, no audible wheeze cardiovascular: S1-S2 regular in rate and rhythm Gastrointestinal: No pain Extremities: No new findings 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 awake oriented x3 motor sensory intact Skin: Normal turgor [employer] [facility] Surgical History History of nasal surgery Hx of removal of ovary History of tubal ligation History of section Mammogram normal Family History Father Ruptured aortic aneurysm Mother Myocardial infarction Son History of blood clots Social History Housing: Other Alcohol intake: current Alcohol intake frequency: 0-2 drinks per day Alcohol type: beer Patient Tobacco Use Status: Former Tobacco user e-Cigarette/Vaping Use: Never Used Current occupational status: retired Cognitive needs: No Hearing needs: No Vision needs: No Questionnaire PHQ-9 Over the last 2 weeks, how often have you been bothered by any of the following problems? 1. Little interest or pleasure in doing things: not at all 2. Feeling down, depressed, or hopeless: not at all 3. Trouble falling or staying asleep, or sleeping too much: not at all 4. Feeling tired or having little energy: not at all 5. Poor appetite or overeating: not at all 6. Feeling bad about yourself - or that you are a failure or have let yourself or your family down: not at all 7. Trouble concentrating on things, such as reading the newspaper or watching television: not at all 8. Moving or speaking so slowly that other people could have noticed. Or the opposite - being so fidgety or restless that you have been moving around a lot more than usual: not at all 9. Thoughts that you would be better off or of hurting yourself in some way: not at all Total score: 0 Depression Screening Interpretation: Negative Depression Screening Done: Yes 88706 - PHQ-9 Billing: Yes Source: Developed by Drs. Carmelo Montgomery, Marilou Wright, Alex Velez and colleagues, with an educational jose from [email or web address]. Thrive Questionnaire Date Thrive assessed: 11/27/24 I am a: Patient What is your living situation today?: I have a steady place to live Within the past 12 months, did the food you bought not last and you didn't have the money to get more?: Often true Within the past 12 months, did you worry whether your food would run out before you got money to buy more?: Never true Do you have trouble paying for medicines?: No Do you have trouble getting transportation to medical appointments?: No Do you have trouble paying your heating and electricity bill?: No Do you have trouble taking care of your child, family member or friend?: No Do you have trouble with day-to-day activities such as bathing, preparing meals, shopping, managing finances, etc.?: No Are you currently unemployed and looking for a job?: No Are you interested in more education?: No Please select the resources that you would like help with: None Currently or been in a relationship where the following occur: No concerns reported THRIVE Score: 1 AUDIT C Alcohol Use Questionnaire (AUDIT-C) 1. How often do you have a drink containing alcohol?: Monthly or less 2. How many drinks containing alcohol do you have on a typical day when you are drinking?: 1 or 2 3. How often do you have six or more drinks on one occasion?: Less than monthly Total Score: 2 Score Reviewed/Action Taken: Yes MATTI-7 AMB Questionnaire MATTI-7 Date MATTI - 7 assessed: 11/27/24 Feeling nervous, anxious, or on edge: 0 = Not at all Not being able to stop or control worryin = Not at all Worrying too much about different things: 0 = Not at all Trouble relaxin = Not at all Being so restless that it is hard to sit still: 0 = Not at all Becoming easily annoyed or irritable: 0 = Not at all Feeling afraid as if something awful might happen: 0 = Not at all Total MATTI-7 score (0-4 normal; 5-9 mild; 10-14 moderate; 15-21 severe): 0 Source: Developed by Drs. Carmelo Montgomery, Marilou Wright, Alex Velez and colleagues, with an educational jose from [email or web address]. MATTI-7 Assessment Billing MATTI-7 Assessment Tool: MATTI-7 Assessment 02718 Physical exam (Primary Care) Vital Signs: Last Vital Signs Pulse 81 11/27/24 11:14 BP 136/88 11/27/24 11:14 Pulse Ox 98 11/27/24 11:14 Oxygen Delivery Method Room Air 11/27/24 11:14 BMI result Body Mass Index 22.3 Tobacco/Smoking Status: Tobacco use Status Tobacco use date assessed 11/27/24 11/27/24 11:23 Patient Tobacco Use Status Former Tobacco user 11/27/24 11:15 e-Cigarette/Vaping Use Never Used 11/27/24 11:15 PHQ-9: PHQ-9 Score PHQ-9: Total score 0 11/27/24 11:30 Depression Screening Interpretation: Negative Thrive Assessment: Date of Thrive Assessment Date Thrive assessed 11/27/24 11/27/24 11:23 Currently or been in a relationship where the following occur: No concerns reported Coding Level of Care Code Est Pt Level 3 (59101) Complex EM visit Add On G2211 Diagnoses Benign essential HTN I10 Chronic GERD K21.9 Lipid disorder E78.9 Low magnesium level R79.0 Vitamin D deficiency E55.9 Additional Codes MATTI-7 Assessment Billing - MATTI-7 Assessment Tool: MATTI-7 Assessment 00123 ([id number]) PHQ-9 - 10417 - PHQ-9 Billing: Yes ([id number]) Assessment & Plan Assessment & Plan (1) Benign essential HTN: Code(s): I10 - Essential (primary) hypertension Category: Medical (2) Chronic GERD: Code(s): K21.9 - Gastro-esophageal reflux disease without esophagitis Category: Medical (3) Lipid disorder: Code(s): E78.9 - Disorder of lipoprotein metabolism, unspecified Category: Medical (4) Low magnesium level: Code(s): R79.0 - Abnormal level of blood mineral Category: Medical (5) Vitamin D deficiency: Code(s): E55.9 - Vitamin D deficiency, unspecified Category: Medical Plan History - The patient is a 79-year-old female presenting with a follow-up for blood pressure management and medication monitoring. - The patient has a history of essential hypertension, currently managed on Lisinopril, reporting her blood pressure is at 136 today. - She suffers from a deviated nasal septum, resulting in occasional nasal congestion and discharge, with no fever or cough reported. - The patient is on Pantoprazole for GERD, with Magnesium and Vitamin D3 supplementation. - Laboratory tests for kidney and liver functions were scheduled but previously neglected and need completion today. Problem List - Deviated Nasal Septum - Essential Hypertension - Gastroesophageal Reflux Disease (GERD) Patient Instructions - Complete the blood test today as previously ordered. - Continue taking your prescribed medications: Lisinopril, Pantoprazole, Magnesium, and Vitamin D3 as instructed. - Proceed to the laboratory today without any additional stops.
--- OUTSIDE RECORDS SUMMARY | 2024-11-27 13:45 | XMS_ITS | Clinical Summary ---
Author Organization [facility] Facility Address [address] [place] [id number] Care Team Providers Care Hip [employer] Perform[employer] Name Role Phone Daphne Frgaa MD Primary Care Provider [phone] Social History Tobacco Use Types Packs/Day Years Used Date Smoking Tobacco: Never Assessed Comments Unknown Sex and Gender Information Value Date Recorded Sex Assigned at Not on file Legal Sex Female 4:09 PM EDT Gender Identity Not on file Sexual Orientation Not on file Plan of Treatment Health Maintenance Due Date Last Done Comments Pneumococcal Vaccine: 65+ Ye ars (1 of 1 - PCV) 2012 Influenza Vaccine (#1) 2024 Hepatitis B Vaccine Aged Out No longe r eligible based on patient's age to complete this topic Insurance MALKA MALKA Care Teams Hip Hop Performers Relationship Specialty Start Date End Date Daphne Fraga MD [address] [place] [id number] PCP - General Internal Medicine 04/03/21
== END 2024-11-27 11:47 | disposition home or self-care (01) ==
LOC: HO.HMCC 11:11
PROVIDERS: PCP Internal Medicine; Visit Provider Internal Medicine
DX: I10 Essential (primary) hypertension (principal); K21.9 Gastro-esophageal reflux disease without esophagitis; E78.9 Disorder of lipoprotein metabolism, unspecified; R79.0 Abnormal level of blood mineral; E55.9 Vitamin D deficiency, unspecified

== ENCOUNTER 2024-11-27 11:10 | Outpatient (REF) | payer MEDICARE, SELFPAY ==
[2024-11-27 13:44] LABS: MANUAL DIFF FLAG NO
[2024-11-27 13:51] LABS: Basophils Absolute Auto 0.1 X10*3/uL (0.0-0.2); Eosinophils Absolute Auto 0.1 X10*3/uL (0.0-0.4); Eosinophils Percent Auto 1.3 % (0-4); Hematocrit 39.9 % (37.0-47.0); Hemoglobin 13.6 g/dl (12.0-16.0); Imm Gran Abs Auto 0.07 X10*3/uL (0.00-0.03); Imm Gran Pct Auto 1.2 % (0.0-0.4); Lymphocytes Absolute Auto 1.2 X10*3/uL (1.2-4.9); Lymphocytes Percent Auto 20.5 % (20-40); Mean Corpuscular HGB Conc 34.1 g/dl (31.0-35.0); Mean Corpuscular Volume 87.9 fL (80.0-98.0); Mean Platelet Volume 8.3 fL (9.4-12.3); Monocytes Absolute Auto 0.6 X10*3/uL (0.1-1.2); Monocytes Percent Auto 9.8 % (2-11); Neutrophils Percent Auto 66.2 % (45-73); Platelet Count 386 X10*3/uL (160-400); Red Blood Count 4.54 X10*6/uL (4.20-5.50); Red Cell Distribution Width 13.5 % (11.0-16.0)
[2024-11-27 14:02] LABS: Alanine Aminotransferase 15 U/L (0-31); Albumin Level 4.3 g/dL (3.5-5.0); Alkaline Phosphatase 99 U/L (39-117); Anion Gap 13 (12-20); Aspartate Amino Transferase 22 U/L (5-31); Bilirubin Total 0.9 mg/dL (0.0-1.0); Blood Urea Nitrogen 10 mg/dL (9-16); Calcium 9.7 mg/dL (8.4-10.2); Carbon Dioxide 26 mmol/L (22-29); Chloride 96 mmol/L (96-108); Estimated Glomerular Filt Rate > 60; Glucose Random 85 mg/dL (60-115); Magnesium 1.6 mg/dL (1.6-2.6); Potassium 4.3 mmol/L (3.3-5.1); Sodium 131 mmol/L (135-145); Total Protein 7.5 g/dL (6.5-8.0)
[2024-11-27 14:24] LABS: TSH reflex Free T4 2.68 uIU/mL (0.32-4.0)
[2024-11-27 14:26] LABS: Vitamin B12 418 pg/mL (200-900)
[2024-11-28 06:03] LABS: LDL Cholesterol Direct 137 mg/dL (<100)
[2024-12-03 21:08] LABS: Vitamin D 25-OH, D2 <4 ng/mL; Vitamin D 25-OH, D3 41 ng/mL; Vitamin D 25-OH, Total 41 ng/mL (30-100)
== END 2024-11-27 11:11 | disposition home or self-care (01) ==
LOC: HO.HMGCLDS 11:10
PROVIDERS: PCP Internal Medicine; Visit Provider Internal Medicine
DX: I10 Essential (primary) hypertension (principal); K21.9 Gastro-esophageal reflux disease without esophagitis; E78.9 Disorder of lipoprotein metabolism, unspecified; R79.0 Abnormal level of blood mineral; E55.9 Vitamin D deficiency, unspecified
CPT/HCPCS: 36415; 80053; 82306; 82607; 83721; 83735; 84443; 85025; 96127; 99212

== ENCOUNTER 2025-02-20 12:07 | Outpatient (AMB) | payer MEDICARE, SELFPAY ==
[2025-02-20 12:13] VITALS: BP 162/98; PULSE 72; TEMP 36.6; O2SAT 98; BMI 22.2
--- NOTE | 2025-02-20 12:13 | A.OFFPC_ITS ---
Vital Signs 02/20/25 12:13 Height 5 ft 2 in Weight 121 lb 8 oz BMI 22.2 BP 162/98 H Blood Pressure Location Lt brachial Pulse 72 Pulse Source Pulse Oximeter Temp 97.9 F Temp Source Oral Pulse Oximetry (%) 98 Oxygen Delivery Method Room Air Intake Visit Reasons: Mole on Back Allergies meperidine (From DEMEROL) Allergy (Intermediate, Verified 02/20/25 12:21) DRY HEAVES Sulfa (Sulfonamide Antibiotics) Allergy (Unknown, Verified 02/20/25 12:21) rash sulfamethoxazole (From BACTRIM) Allergy (Unknown, Verified 02/20/25 12:21) RASH trimethoprim (From BACTRIM) Allergy (Unknown, Verified 02/20/25 12:21) RASH bee Allergy (Unknown, Uncoded 01/27/24 11:21) anaphylaxis Bee stings Allergy (Unknown, Uncoded 01/27/24 11:21) anaphylaxis Wasps/fire ants Allergy (Unknown, Uncoded 01/27/24 11:21) anaphylaxis Hydrochlorothiazide Adverse Reaction (Mild, Uncoded 01/27/24 11:21) Lightheadedness Medication List - Last Reconciled 02/20/25 by Daphne Fraga MD aspirin (Adult Low Dose Aspirin) 81 mg PO DAILY cholecalciferol (vitamin D3) 25 mcg PO DAILY 90 days pantoprazole 20 mg PO DAILY 90 days Tobacco use date assessed: 11/27/24 Fall risk assessment: No Falls in past year Last assessed Fall Risk: 02/20/25 Dental Screening Dental Screen Date: 11/27/24 Did you have a dental visit in the last 12 months?: No Did you have a dental problem in the last 6 months where you did not have access to dental care?: No Was dental information given to patient?: Patient declined HPI Mole on Back HPI Details - The patient is a 79-year-old female pr esenting with elevated blood pressure. She reports having a history of hypertension and recently ceased taking her prescribed lisinopril, which might have contributed to an increase in blood pressure. - Reports stopping lisinopril due to fee ling it was too high a dose for her when feeling good, especially before bed while relaxing. She had been taking the medication later in the day and potentially missed some doses. - During a prior visit in November, her blo od pressure was recorded at 136 mmHg, and she is uncertain whether she was taking lisinopril then. - Additionally, the patient experienced low sodium levels in November, and alcohol consumption may contribute to the fluctuation of sodium levels. - Patient reports an infection on her le ft forearm from a cat bite. The infection is confirmed, but bruises are attributed to activity in the house. Mole on her back which is chronic bled previously , patient has been covering it with Band-Aid on examination she has a large open sore itch need surgical treatment Referral to surgery placed for that reason Patient has numerous cats that she is taking care of and have a lot of cat scratches on her forearm Hyponatremia need to be monitored Social History: - Lives in a multi-cat household with 16 cats. - Occasionally consumes alcohol, such as a cup of beer or a sip of wine in the afternoon. 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 - Regular morning routine includes two c ups of coffee and an oatmeal cookie. Takes pantoprazole at 11 AM. Family History: - Son resides in [place], aged ar ound 50. Medications - Lisinopril (recently stopped) - Pantoprazole 20 mg for stomach issues - Vitamin supplements (unspecified) - Occasional magnesium oxide Problem List - Hypertension - History of low blood sodium levels - Infected cat bite on left forearm - large open sore in the back - cat scratches all over forearm - chronic GERD Patient Instructions - Resume lisinopril, considering startin g with 20 mg if 40 mg feels too high. - Check sodium levels regularly and avoi d excessive alcohol to prevent further sodium reduction. - Continue pantoprazole at the current d ose. - Use antibiotic as prescribed for the i nfected cat bite on the left forearm. Augmentin b.i.d. for 7 days - open sore in the back need to be evalu ated by surgery benedicto Review of Systems General: No fever no chills neurological: No headaches no dizziness ear nose throat: No sore throat no hearing difficulty no ear pain cardiovascular: No syncope, no chest pain, no palpitations gastrointestinal: No nausea vomiting or diarrhea endocrine: No polyuria polydipsia no heat intolerance genitourinary: No dysuria skin: No new complaints Physical Exam general: No acute distress HEENT: No acute findings neck: Supple respiratory system: Able to talk in full sentences, no audible wheeze no stridor cardiovascular: S1-S2 RRR gastrointestinal: No pain extremities: Bruises on left forearm, cat bite on left forearm, requires antibiotic 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 awake oriented x3 motor sensory intact skin: Normal turgor, open sore upper back size of ping-pong ball [facility] Surgical History History of nasal surgery Hx of removal of ovary History of tubal ligation History of section Mammogram normal Family History Father Ruptured aortic aneurysm Mother Myocardial infarction Son History of blood clots Social History Housing: Other Alcohol intake: current Alcohol intake frequency: 0-2 drinks per day Alcohol type: beer Patient Tobacco Use Status: Former Tobacco user e-Cigarette/Vaping Use: Never Used Current occupational status: retired Cognitive needs: No Hearing needs: No Vision needs: No Questionnaire PHQ-9 Over the last 2 weeks, how often have you been bothered by any of the following problems? 1. Little interest or pleasure in doing things: not at all 2. Feeling down, depressed, or hopeless: not at all 3. Trouble falling or staying asleep, or sleeping too much: not at all 4. Feeling tired or having little energy: not at all 5. Poor appetite or overeating: not at all 6. Feeling bad about yourself - or that you are a failure or have let yourself or your family down: not at all 7. Trouble concentrating on things, such as reading the newspaper or watching television: not at all 8. Moving or speaking so slowly that other people could have noticed. Or the opposite - being so fidgety or restless that you have been moving around a lot more than usual: not at all 9. Thoughts that you would be better off or of hurting yourself in some way: not at all Total score: 0 Depression Screening Interpretation: Negative Depression Screening Done: Yes 86288 - PHQ-9 Billing: Yes Source: Developed by Drs. Carmelo Montgomery, Marilou Wright, Alex Velez and colleagues, with an educational jose from [employer]. Thrive Questionnaire Date Thrive assessed: 11/27/24 I am a: Patient What is your living situation today?: I have a steady place to live Within the past 12 months, did the food you bought not last and you didn't have the money to get more?: Often true Within the past 12 months, did you worry whether your food would run out before you got money to buy more?: Never true Do you have trouble paying for medicines?: No Do you have trouble getting transportation to medical appointments?: No Do you have trouble paying your heating and electricity bill?: No Do you have trouble taking care of your child, family member or friend?: No Do you have trouble with day-to-day activities such as bathing, preparing meals, shopping, managing finances, etc.?: No Are you currently unemployed and looking for a job?: No Are you interested in more education?: No Please select the resources that you would like help with: None Currently or been in a relationship where the following occur: No concerns reported THRIVE Score: 1 MATTI-7 AMB Questionnaire MATTI-7 Date MATTI - 7 assessed: 11/27/24 Feeling nervous, anxious, or on edge: 0 = Not at all Not being able to stop or control worryin = Not at all Worrying too much about different things: 0 = Not at all Trouble relaxin = Not at all Being so restless that it is hard to sit still: 0 = Not at all Becoming easily annoyed or irritable: 0 = Not at all Feeling afraid as if something awful might happen: 0 = Not at all Total MATTI-7 score (0-4 normal; 5-9 mild; 10-14 moderate; 15-21 severe): 0 Source: Developed by Drs. Carmelo Montgomery, Marilou Wright, Alex Velez and colleagues, with an educational jose from [employer]. MATTI-7 Assessment Billing MATTI-7 Assessment Tool: MATTI-7 Assessment 76426 Physical exam (Primary Care) Vital Signs: Last Vital Signs Temp 97.9 F 02/20/25 12:13 Pulse 72 02/20/25 12:13 BP 162/98 H 02/20/25 12:13 Pulse Ox 98 02/20/25 12:13 Oxygen Delivery Method Room Air 02/20/25 12:13 BMI result Body Mass Index 22.2 Tobacco/Smoking Status: Tobacco use Status Tobacco use date assessed 11/27/24 02/20/25 12:25 Patient Tobacco Use Status Former Tobacco user 02/20/25 12:25 e-Cigarette/Vaping Use Never Used 02/20/25 12:25 PHQ-9: PHQ-9 Score PHQ-9: Total score 0 02/20/25 13:42 Depression Screening Interpretation: Negative Thrive Assessment: Date of Thrive Assessment Date Thrive assessed 11/27/24 02/20/25 12:25 Currently or been in a relationship where the following occur: No concerns reported Coding Level of Care Code Est Pt Level 5 (90013) Complex EM visit Add On G2211 Diagnoses Open wound of right side of back, initial encounter S21. Encounter type: initial encounter Laterality: right Skin sore L98.9 Uncontrolled hypertension I10 Cat bite of left forearm, initial encounter S51.852A; W55.01XA Encounter type: initial encounter Laterality: left Low sodium levels E87.1 Lipid disorder E78.9 Vitamin D deficiency E55.9 Chronic GERD K21.9 Low magnesium level R79.0 Additional Codes MATTI-7 Assessment Billing - MATTI-7 Assessment Tool: MATTI-7 Assessment 41638 ([id number]) PHQ-9 - 80936 - PHQ-9 Billing: Yes ([id number]) Time Spent (min) 41 Comment Reviewing chart/labs/ause-cn-ehar with the patient/coordination of care Assessment & Plan Assessment & Plan (1) Open wound of back: Code(s): S21.A - Unspecified open wound of unspecified back wall of thorax without penetration into thoracic cavity, initial encounter Category: Medical Qualifiers: Encounter type: initial encounter Laterality: right Qualified Code(s): S21.A - Unspecified open wound of right back wall of thorax without penetration into thoracic cavity, initial encounter (2) Skin sore: Code(s): L98.9 - Disorder of the skin and subcutaneous tissue, unspecified Category: Medical (3) Uncontrolled hypertension: Code(s): I10 - Essential (primary) hypertension Category: Medical (4) Cat bite of forearm: Code(s): S51.859A - Open bite of unspecified forearm, initial encounter; W55.01XA - Bitten by cat, initial encounter Category: Medical Qualifiers: Encounter type: initial encounter Laterality: left Qualified Code(s): S51.852A - Open bite of left forearm, initial encounter; W55.01XA - Bitten by cat, initial encounter (5) Low sodium levels: Code(s): E87.1 - Hypo-osmolality and hyponatremia Category: Medical (6) Lipid disorder: Code(s): E78.9 - Disorder of lipoprotein metabolism, unspecified Category: Medical (7) Vitamin D deficiency: Code(s): E55.9 - Vitamin D deficiency, unspecified Category: Medical (8) Chronic GERD: Code(s): K21.9 - Gastro-esophageal reflux disease without esophagitis Category: Medical (9) Low magnesium level: Code(s): R79.0 - Abnormal level of blood mineral Category: Medical Plan - The patient is a 79-year-old female presenting with elevated blood pressure. She reports having a history of hypertension and recently ceased taking her prescribed lisinopril, which might have contributed to an increase in blood pressure. - Reports stopping lisinopril due to feeling it was too high a dose for her when feeling good, especially before bed while relaxing. She had been taking the medication later in the day and potentially missed some doses. - During a prior visit in November, her blood pressure was recorded at 136 mmHg, and she is uncertain whether she was taking lisinopril then. - Additionally, the patient experienced low sodium levels in November, and alcohol consumption may contribute to the fluctuation of sodium levels. - Patient reports an infection on her left forearm from a cat bite. The infection is confirmed, but bruises are attributed to activity in the house. Mole on her back which is chronic bled previously , patient has been covering it with Band-Aid on examination she has a large open sore itch need surgical treatment Referral to surgery placed for that reason Patient has numerous cats that she is taking care of and have a lot of cat scratches on her forearm Hyponatremia need to be monitored Social History: - Lives in a multi-cat household with 16 cats. - Occasionally consumes alcohol, such as a cup of beer or a sip of wine in the afternoon. 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 - Regular morning routine includes two cups of coffee and an oatmeal cookie. Takes pantoprazole at 11 AM. Family History: - Son resides in [place], aged around 50. Medications - Lisinopril (recently stopped) - Pantoprazole 20 mg for stomach issues - Vitamin supplements (unspecified) - Occasional magnesium oxide Problem List - Hypertension - History of low blood sodium levels - Infected cat bite on left forearm - large open sore in the back - cat scratches all over forearm - chronic GERD Patient Instructions - Resume lisinopril, considering starting with 20 mg if 40 mg feels too high. - Check sodium levels regularly and avoid excessive alcohol to prevent further sodium reduction. - Continue pantoprazole at the current dose. - Use antibiotic as prescribed for the infected cat bite on the left forearm. Augmentin b.i.d. for 7 days - open sore in the back need to be evaluated by surgery benedicto Orders: Orders Comprehensive Met. Panel Today E55.9 - Vitamin D deficiency, unspecified, E78.9 - Disorder of lipoprotein metabolism, unspecified, E87.1 - Hypo-osmolality and hyponatremia, I10 - Essential (primary) hypertension, K21.9 - Gastro-esophageal reflux disease without esophagitis, S51.859A - Open bite of unspecified forearm, initial encounter, W55.01XA - Bitten by cat, initial encounter Magnesium Today R79.0 - Abnormal level of blood mineral Referrals Genetics Referral L98.9 - Disorder of the skin and subcutaneous tissue, unspecified, S21.209A - Unspecified open wound of unspecified back wall of thorax without penetration into thoracic cavity, initial encounter Medications: New amoxicillin-pot clavulanate 500-125 mg at 8 am and 8 pm 1 tab PO Q12H 14 tabs 0RF 7 days Refilled lisinopril 40 mg PO DAILY 90 tabs 0RF
--- OUTSIDE RECORDS SUMMARY | 2025-02-20 14:01 | XMS_ITS | Clinical Summary ---
Author Organization [facility] Facility Address [address] [place] [id number] Care Team Providers Care Sales Process Manager Name Role Phone Daphne Fraga MD Primary Care Provider [phone] Social History Tobacco Use Types Packs/Day Years Used Date Smoking Tobacco: Never Assessed Comments Unknown Sex and Gender Information Value Date Recorded Sex Assigned at Not on file Legal Sex Female 4:09 PM EDT Gender Identity Not on file Sexual Orientation Not on file Plan of Treatment Health Maintenance Due Date Last Done Comments Pneumococcal Vaccine: 50+ Ye ars (1 of - PCV) 1997 Influenza Vaccine (Season Ended) 2025 Hepatitis B Vaccine Aged Out No longe r eligible based on patient's age to complete this topic Insurance [employer] Lalita Care Teams Sales Process Manager Relationship Specialty Start Date End Date Daphne Fraga MD [address] [place] [id number] PCP - General Internal Medicine 04/03/21
== END 2025-02-20 12:41 | disposition home or self-care (01) ==
LOC: HO.HMCC 12:08
PROVIDERS: PCP Internal Medicine; Visit Provider Internal Medicine
DX: I10 Essential (primary) hypertension (principal); S21.201A Unspecified open wound of right back wall of thorax without penetration into thoracic cavity, initial encounter; W55.01XA Bitten by cat, initial encounter; L98.9 Disorder of the skin and subcutaneous tissue, unspecified; S51.852A Open bite of left forearm, initial encounter; E87.1 Hypo-osmolality and hyponatremia; E78.9 Disorder of lipoprotein metabolism, unspecified; E55.9 Vitamin D deficiency, unspecified; K21.9 Gastro-esophageal reflux disease without esophagitis; R79.0 Abnormal level of blood mineral

== ENCOUNTER 2025-02-20 12:43 | Outpatient (REF) | payer MEDICARE, SELFPAY ==
[2025-02-20 16:59] LABS: Alanine Aminotransferase 11 U/L (0-31); Albumin Level 4.5 g/dL (3.5-5.0); Alkaline Phosphatase 92 U/L (39-117); Anion Gap 13 (12-20); Aspartate Amino Transferase 25 U/L (5-31); Bilirubin Total 0.7 mg/dL (0.0-1.0); Blood Urea Nitrogen 11 mg/dL (9-16); Calcium 9.8 mg/dL (8.4-10.2); Carbon Dioxide 25 mmol/L (22-29); Chloride 100 mmol/L (96-108); Estimated Glomerular Filt Rate > 60; Glucose Random 89 mg/dL (60-115); Magnesium 1.4 mg/dL (1.6-2.6); Potassium 4.2 mmol/L (3.3-5.1); Sodium 134 mmol/L (135-145); Total Protein 7.6 g/dL (6.5-8.0)
== END 2025-02-20 12:44 | disposition home or self-care (01) ==
LOC: HO.HMGCLDS 12:43
PROVIDERS: PCP Internal Medicine; Visit Provider Internal Medicine
DX: I10 Essential (primary) hypertension (principal); L98.9 Disorder of the skin and subcutaneous tissue, unspecified; E87.1 Hypo-osmolality and hyponatremia; E78.9 Disorder of lipoprotein metabolism, unspecified; E55.9 Vitamin D deficiency, unspecified; S21.201A Unspecified open wound of right back wall of thorax without penetration into thoracic cavity, initial encounter; S51.852A Open bite of left forearm, initial encounter; W55.01XA Bitten by cat, initial encounter; X58.XXXA Exposure to other specified factors, initial encounter; Y93.9 Activity, unspecified; Y92.9 Unspecified place or not applicable; Y99.9 Unspecified external cause status; Z13.31 Encounter for screening for depression
CPT/HCPCS: 36415; 80053; 83735; 96127; 99212

== ENCOUNTER 2025-03-14 13:12 | Outpatient (AMB) | payer MEDICARE, SELFPAY ==
[2025-03-14 13:14] VITALS: BP 156/90; PULSE 88; TEMP 36.7; O2SAT 99; BMI 22.0
--- NOTE | 2025-03-14 13:14 | AM.OFFWIN_ITS ---
Intake Vital Signs 3 03/14/25 13:14 Height 5 ft 2 in Weight 120 lb 2 oz BMI 22.0 BP 156/90 H Blood Pressure Location Lt brachial Position Sitting Pulse 88 Pulse Source Pulse Oximeter Temp 98.0 F Temp Source Oral Pulse Oximetry (%) 99 Oxygen Delivery Method Room Air Intake Visit Reasons: EP swollen LT leg/foot due to a cat bite Intake Note: Patient presents with a cat bite from over a month ago on left leg, Swelling, redness and some pain Patient Tobacco Use Status: Former Tobacco user Rn Endoscopy Required: No Is last menstrual period known: No Post menopausal: Yes Patient : No Allergies meperidine (From DEMEROL) Allergy (Intermediate, Verified 03/14/25 13:19) DRY HEAVES Sulfa (Sulfonamide Antibiotics) Allergy (Unknown, Verified 03/14/25 13:19) rash sulfamethoxazole (From BACTRIM) Allergy (Unknown, Verified 03/14/25 13:19) RASH trimethoprim (From BACTRIM) Allergy (Unknown, Verified 03/14/25 13:19) RASH bee Allergy (Unknown, Uncoded 01/27/24 11:21) anaphylaxis Bee stings Allergy (Unknown, Uncoded 01/27/24 11:21) anaphylaxis Wasps/fire ants Allergy (Unknown, Uncoded 01/27/24 11:21) anaphylaxis Hydrochlorothiazide Adverse Reaction (Mild, Uncoded 01/27/24 11:21) Lightheadedness Do you need a note to return to daycare/school/sports/work: No HPI HPI Comments 2 History of Present Illness0 Details 79 y/o Female patient who presents to [facility] walk [facility] clinic with c/o left lower leg infection from multiple Cat bites. Pt is poor historian and does not remember how and when the Cat bite occurred. Pt lives in a House with Multiple Cats. Denies fevers, chills, Nausea or vomiting. [facility] Medical History (Updated 03/14/25 @ 13:53 by Mine Mathis NP) Cellulitis of skin Surgical History History of nasal surgery Hx of removal of ovary History of tubal ligation History of section Mammogram normal Family History Father Ruptured aortic aneurysm Mother Myocardial infarction Son History of blood clots Social History Housing: Other Alcohol intake: current Alcohol intake frequency: 0-2 drinks per day Alcohol type: beer Patient Tobacco Use Status: Former Tobacco user e-Cigarette/Vaping Use: Never Used Patient : No Current occupational status: retired Cognitive needs: No Hearing needs: No Vision needs: No Review of Systems Const All systems reviewed & are unremarkable except as noted in HPI and below Physical Exam Vital Signs: Last Vital Signs Temp 98.0 F 03/14/25 13:14 Pulse 88 03/14/25 13:14 BP 156/90 H 03/14/25 13:14 Pulse Ox 99 03/14/25 13:14 Oxygen Delivery Method Room Air 03/14/25 13:14 BMI result Body Mass Index 22.0 Const General: no acute distress and poor hygiene Orientation/consciousness: patient oriented x3 Neuro General: patient oriented x3, gait normal and moves all extremities Extrem Left lower extremity: lower leg Details: erythema Location: of the mid lower leg, tenderness, pitting edema Details: 2+ and warmth Upper/lower leg/hip images: 2 1. Open wound erythematous TTP, Draining yellowish discharge. +2 Pitting Edema. Psych Attitude: cooperative Assessment & Plan Assessment & Plan (1) Cellulitis of skin: Code(s): L03.90 - Cellulitis, unspecified Plan: Ordered Cephalexin for 10 days. Clean the wound; Applied Xeroform, 4x4 Kerlix wrap and Bo bandage. Advised to keep the area clean and dry - continue to do dress changes at home. Elevate LE Acetaminophen for pain relief. Medications: New 2 cephalexin 500 mg PO BID 20 caps 0RF 10 days L03.90 - Cellulitis, unspecified Coding Level of Care Code Est Pt Level 4 (87200) Diagnoses Cellulitis of skin L03.90 Time Spent (min) 20
--- OUTSIDE RECORDS SUMMARY | 2025-03-14 13:14 | XMS_ITS | Clinical Summary ---
Author Organization [facility] Facility Address [address] [place] [address] Care Team Providers Care Dairy Cattle Farm Manager Name Role Phone Daphne Fraga MD Primary Care Provider [phone] Social History Tobacco Use Types Packs/Day Years Used Date Smoking Tobacco: Never Assessed Comments Unknown Sex and Gender Information Value Date Recorded Sex Assigned at Not on file Legal Sex Female 4:09 PM EDT Gender Identity Not on file Sexual Orientation Not on file Plan of Treatment Health Maintenance Due Date Last Done Comments Pneumococcal Vaccine: 50+ Ye ars (1 of 1 - PCV) 1997 Influenza Vaccine (#1) 2025 Hepatitis B Vaccine Aged Out No longe r eligible based on patient's age to complete this topic Insurance Lalita Starr Care Teams Dairy Cattle Farm Manager Relationship Specialty Start Date End Date Daphne Fraga MD [address] [place] [id number] PCP - General Internal Medicine 04/03/21
== END 2025-03-14 13:57 | disposition home or self-care (01) ==
PROVIDERS: PCP Internal Medicine; Visit Provider Nurse Practitioner Family
DX: L03.90 Cellulitis, unspecified (principal)

== ENCOUNTER → 2025-03-14 13:12 | Outpatient (BNVA) | payer MEDICARE, SELFPAY | PROVIDERS: PCP Internal Medicine; Visit Provider Nurse Practitioner Family | DX: L03.90 Cellulitis, unspecified (principal) | CPT/HCPCS: 99212 ==

== ENCOUNTER 2025-05-22 11:56 | Outpatient (AMB) | payer MEDICARE, SELFPAY ==
--- NOTE | 2025-05-22 11:58 | A.OFFPC_ITS ---
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 Accompanied by: Self / Same As Patient Allergies meperidine (From DEMEROL) Allergy (Intermediate, Verified 05/22/25 11:59) DRY HEAVES Sulfa (Sulfonamide Antibiotics) Allergy (Unknown, Verified 05/22/25 11:59) rash sulfamethoxazole (From BACTRIM) Allergy (Unknown, Verified 05/22/25 11:59) RASH trimethoprim (From BACTRIM) Allergy (Unknown, Verified 05/22/25 11:59) RASH bee Allergy (Unknown, Uncoded 01/27/24 11:21) anaphylaxis Bee stings Allergy (Unknown, Uncoded 01/27/24 11:21) anaphylaxis Wasps/fire ants Allergy (Unknown, Uncoded 01/27/24 11:21) anaphylaxis Hydrochlorothiazide Adverse Reaction (Mild, Uncoded 01/27/24 11:21) Lightheadedness Medication List - Last Reconciled 05/22/25 by Daphne Fraga MD aspirin (Adult Low Dose Aspirin) 81 mg PO DAILY cholecalciferol (vitamin D3) 25 mcg PO DAILY 90 days magnesium oxide 400 mg PO DAILY 90 days pantoprazole 20 mg PO DAILY 90 days Tobacco use date assessed: 11/27/24 Fall risk assessment: No Falls in past year Last assessed Fall Risk: 05/22/25 Dental Screening Dental Screen Date: 11/27/24 HPI 3m follow up HPI Details History The patient is a 80-year-old female presenting with concerns about elevated blood pressure and medication management. non compliant with medical advice Hypertension: - The patient reports not taking blood p ressure medication for a while as she does not currently possess the medication. she threw it as she dont think she need it - She expresses concern about taking 40 mg dosages, voicing that she feels it may be too high for her. - The patient has been using a home bloo d pressure cuff, which has shown a reading of 150 systolic. at home - She feels the need to manage her blood pressure more effectively, following a discussion about the risks of unmanaged hypertension, including stroke. - She is uncertain about the timing of a dministering blood pressure medication if she resumes it. Patient was notified to take it when ever its easier for her, just fix the time and take it same time daily Cutaneous issue (mole/skin lesion): - The patient has a mole that is not hekeisha ling, and it exudes slightly. right uppe r back, she is instructed to see derm before as well, when she declined . 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 - She and her care for 16 cats a nd are actively involved in feeding them. - Patient reports typically eating meals in the bedroom instead of the kitchen due to personal habits. 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 lisinopril 40 mg - Take blood pressure medication in the morning with water. - Continue to manage stomach issues with prescribed medication to be taken at night. - Follow up in two weeks for blood press ure check and bring the home blood pressure machine to verify accuracy. - Schedule a visit with a mma fighter for the non-healing mole. 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 intact skin: Normal turgor, open sore right upper back covered with large band aid, size of quintanilla, advised to see a mma fighter [facility] Medical History Cellulitis of skin Surgical History History of nasal surgery Hx of removal of ovary History of tubal ligation History of section Mammogram normal Family History Father Ruptured aortic aneurysm Mother Myocardial infarction Son History of blood clots Social History Housing: Other Alcohol intake: current Alcohol intake frequency: 0-2 drinks per day Alcohol type: beer Patient Tobacco Use Status: Former Tobacco user e-Cigarette/Vaping Use: Never Used Current occupational status: retired Cognitive needs: No Hearing needs: No Vision needs: No Questionnaire PHQ-9 Over the last 2 weeks, how often have you been bothered by any of the following problems? 1. Little interest or pleasure in doing things: not at all 2. Feeling down, depressed, or hopeless: not at all 3. Trouble falling or staying asleep, or sleeping too much: not at all 4. Feeling tired or having little energy: not at all 5. Poor appetite or overeating: not at all 6. Feeling bad about yourself - or that you are a failure or have let yourself or your family down: not at all 7. Trouble concentrating on things, such as reading the newspaper or watching television: not at all 8. Moving or speaking so slowly that other people could have noticed. Or the opposite - being so fidgety or restless that you have been moving around a lot more than usual: not at all 9. Thoughts that you would be better off or of hurting yourself in some way: not at all Total score: 0 Depression Screening Interpretation: Negative Depression Screening Done: Yes 79846 - PHQ-9 Billing: Yes Source: Developed by Drs. Carmelo Montgomery, Marilou Wright, Alex Velez and colleagues, with an educational jose from [employer] Thrive Questionnaire Date Thrive assessed: 11/27/24 I am a: Patient What is your living situation today?: I have a steady place to live Within the past 12 months, did the food you bought not last and you didn't have the money to get more?: Often true Within the past 12 months, did you worry whether your food would run out before you got money to buy more?: Never true Do you have trouble paying for medicines?: No Do you have trouble getting transportation to medical appointments?: No Do you have trouble paying your heating and electricity bill?: No Do you have trouble taking care of your child, family member or friend?: No Do you have trouble with day-to-day activities such as bathing, preparing meals, shopping, managing finances, etc.?: No Are you currently unemployed and looking for a job?: No Are you interested in more education?: No Please select the resources that you would like help with: None Currently or been in a relationship where the following occur: No concerns reported THRIVE Score: 1 AUDIT C Alcohol Use Questionnaire (AUDIT-C) 1. How often do you have a drink containing alcohol?: Monthly or less 2. How many drinks containing alcohol do you have on a typical day when you are drinking?: 1 or 2 3. How often do you have six or more drinks on one occasion?: Less than monthly Total Score: 2 MATTI-7 AMB Questionnaire MATTI-7 Date MATTI - 7 assessed: 11/27/24 Feeling nervous, anxious, or on edge: 0 = Not at all Not being able to stop or control worryin = Not at all Worrying too much about different things: 0 = Not at all Trouble relaxin = Not at all Being so restless that it is hard to sit still: 0 = Not at all Becoming easily annoyed or irritable: 0 = Not at all Feeling afraid as if something awful might happen: 0 = Not at all Total MATTI-7 score (0-4 normal; 5-9 mild; 10-14 moderate; 15-21 severe): 0 Source: Developed by Drs. Carmelo Montgomery, Marilou Wright, Alex Velez and colleagues, with an educational jose from [employer] Physical exam (Primary Care) Vital Signs: Last Vital Signs Pulse 86 05/22/25 11:59 BP 180/98 H 05/22/25 11:59 Pulse Ox 97 05/22/25 11:59 BMI result Body Mass Index 21.6 Tobacco/Smoking Status: Tobacco use Status Tobacco use date assessed 11/27/24 05/22/25 11:58 Patient Tobacco Use Status Former Tobacco user 05/22/25 11:58 e-Cigarette/Vaping Use Never Used 05/22/25 11:58 PHQ-9: PHQ-9 Score PHQ-9: Total score 0 05/22/25 12:24 Depression Screening Interpretation: Negative Thrive Assessment: Date of Thrive Assessment Date Thrive assessed 11/27/24 05/22/25 11:58 Currently or been in a relationship where the following occur: No concerns reported Coding Level of Care Code Est Pt Level 4 (68767) Complex EM visit Add On G2211 Diagnoses Uncontrolled hypertension I10 Open wound of right side of back, initial encounter S21.201A Encounter type: initial encounter Laterality: right Lipid disorder E78.9 Chronic GERD K21.9 Low magnesium level R79.0 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 Kyphosis type: postural Spinal region: cervicothoracic Non-compliance Z91.199 Additional Codes PHQ-9 - 40782 - PHQ-9 Billing: Yes ([id number]) Assessment & Plan Assessment & Plan (1) Uncontrolled hypertension: Code(s): I10 - Essential (primary) hypertension Category: Medical (2) Open wound of back: Code(s): S21.209A - Unspecified open wound of unspecified back wall of thorax without penetration into thoracic cavity, initial encounter Category: Medical Qualifiers: Encounter type: initial encounter Laterality: right Qualified Code(s): S21.201A - Unspecified open wound of right back wall of thorax without penetration into thoracic cavity, initial encounter (3) Lipid disorder: Code(s): E78.9 - Disorder of lipoprotein metabolism, unspecified Category: Medical (4) Chronic GERD: Code(s): K21.9 - Gastro-esophageal reflux disease without esophagitis Category: Medical (5) Low magnesium level: Code(s): R79.0 - Abnormal level of blood mineral Category: Medical (6) Kyphosis: Code(s): M40.209 - Unspecified kyphosis, site unspecified Category: Medical Qualifiers: Kyphosis type: postural Spinal region: cervicothoracic Qualified Code(s): M40.03 - Postural kyphosis, cervicothoracic region (7) Non-compliance: Code(s): Z91.199 - Patient's noncompliance with other medical treatment and regimen due to unspecified reason Category: Medical Plan History The patient is a 80-year-old female presenting with concerns about elevated blood pressure and medication management. non compliant with medical advice Hypertension: - The patient reports not taking blood pressure medication for a while as she does not currently possess the medication. she threw it as she dont think she need it - She expresses concern about taking 40 mg dosages, voicing that she feels it may be too high for her. - The patient has been using a home blood pressure cuff, which has shown a reading of 150 systolic. at home - She feels the need to manage her blood pressure more effectively, following a discussion about the risks of unmanaged hypertension, including stroke. - She is uncertain about the timing of administering blood pressure medication if she resumes it. Patient was notified to take it when ever its easier for her, just fix the time and take it same time daily Cutaneous issue (mole/skin lesion): - The patient has a mole that is not healing, and it exudes slightly. right upper back, she is instructed to see derm before as well, when she declined . 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 - Patient reports typically eating meals in the bedroom instead of the kitchen due to personal habits. 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 lisinopril 40 mg - Take blood pressure medication in the morning with water. - Continue to manage stomach issues with prescribed medication to be taken at night. - Follow up in two weeks for blood pressure check and bring the home blood pressure machine to verify accuracy. - Schedule a visit with a mma fighter for the non-healing mole. Orders: Orders Magnesium Today E78.9 - Disorder of lipoprotein metabolism, unspecified, I10 - Essential (primary) hypertension, K21.9 - Gastro-esophageal reflux disease without esophagitis, M40.03 - Postural kyphosis, cervicothoracic region, R79.0 - Abnormal level of blood mineral Comprehensive Met. Panel Today E78.9 - Disorder of lipoprotein metabolism, unspecified, I10 - Essential (primary) hypertension, K21.9 - Gastro-esophageal reflux disease without esophagitis, M40.03 - Postural kyphosis, cervicothoracic region, R79.0 - Abnormal level of blood mineral TSH reflex Free T4 Today E78.9 - Disorder of lipoprotein metabolism, unspecified, I10 - Essential (primary) hypertension, K21.9 - Gastro-esophageal reflux disease without esophagitis, M40.03 - Postural kyphosis, cervicothoracic region, R79.0 - Abnormal level of blood mineral Referrals Dermatology Referral D22.9 - Melanocytic nevi, unspecified Medications: Refilled lisinopril 40 mg PO DAILY 90 tabs 0RF cholecalciferol (vitamin D3) 25 mcg PO DAILY 90 caps 1RF 90 days magnesium oxide 400 mg PO DAILY 90 tabs 0RF 90 days pantoprazole 20 mg PO DAILY 90 tabs 1RF 90 days
[2025-05-22 11:59] VITALS: BP 180/98; PULSE 86; O2SAT 97; BMI 21.6
--- OUTSIDE RECORDS SUMMARY | 2025-05-22 15:27 | XMS_ITS | Clinical Summary ---
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
== END 2025-05-22 12:24 | disposition home or self-care (01) ==
LOC: HO.HMCC 11:57
PROVIDERS: PCP Internal Medicine; Visit Provider Internal Medicine
DX: I10 Essential (primary) hypertension (principal); S21.201A Unspecified open wound of right back wall of thorax without penetration into thoracic cavity, initial encounter; E78.9 Disorder of lipoprotein metabolism, unspecified; K21.9 Gastro-esophageal reflux disease without esophagitis; R79.0 Abnormal level of blood mineral; M40.03 Postural kyphosis, cervicothoracic region; Z91.199 Patient's noncompliance with other medical treatment and regimen due to unspecified reason

== ENCOUNTER → 2025-05-22 11:56 | Outpatient (BNVA) | payer MEDICARE, SELFPAY | PROVIDERS: PCP Internal Medicine; Visit Provider Internal Medicine | DX: I10 Essential (primary) hypertension (principal); D22.9 Melanocytic nevi, unspecified; E78.9 Disorder of lipoprotein metabolism, unspecified; K21.9 Gastro-esophageal reflux disease without esophagitis; R79.0 Abnormal level of blood mineral; M40.03 Postural kyphosis, cervicothoracic region; S21.201A Unspecified open wound of right back wall of thorax without penetration into thoracic cavity, initial encounter; X58.XXXA Exposure to other specified factors, initial encounter; Y93.9 Activity, unspecified; Y92.9 Unspecified place or not applicable; Y99.9 Unspecified external cause status; Z91.199 Patient's noncompliance with other medical treatment and regimen due to unspecified reason | CPT/HCPCS: 96127; 99212 ==

== ENCOUNTER 2025-06-05 11:45 | Outpatient (REF) | payer MEDICARE, SELFPAY ==
[2025-06-05 16:37] LABS: Anion Gap 12 (12-20); Blood Urea Nitrogen 11 mg/dL (9-16); Calcium 9.9 mg/dL (8.4-10.2); Carbon Dioxide 28 mmol/L (22-29); Chloride 100 mmol/L (96-108); Estimated Glomerular Filt Rate 59; Magnesium 1.5 mg/dL (1.6-2.6); Potassium 4.2 mmol/L (3.3-5.1); Sodium 136 mmol/L (135-145)
== END 2025-06-05 11:46 | disposition home or self-care (01) ==
LOC: HO.HMGCLDS 11:45
PROVIDERS: PCP Internal Medicine; Visit Provider Internal Medicine
DX: I10 Essential (primary) hypertension (principal); E78.9 Disorder of lipoprotein metabolism, unspecified; R79.0 Abnormal level of blood mineral; K21.9 Gastro-esophageal reflux disease without esophagitis; M40.03 Postural kyphosis, cervicothoracic region; Z79.82 Long term (current) use of aspirin; Z79.899 Other long term (current) drug therapy
CPT/HCPCS: 36415; 80048; 83735; 84443; 96127; 99212

== ENCOUNTER 2025-06-05 11:45 | Outpatient (AMB) | payer MEDICARE, SELFPAY ==
[2025-06-05 11:47] VITALS: BP 160/98; PULSE 87; O2SAT 98; BMI 21.0
--- NOTE | 2025-06-05 11:47 | A.OFFPC_ITS ---
Vital Signs 06/05/25 11:47 Height 5 ft 2 in Weight 115 lb BMI 21.0 BP 160/98 H Blood Pressure Location Lt brachial Position Sitting Pulse 87 Pulse Source Pulse Oximeter Pulse Oximetry (%) 98 Oxygen Delivery Method Room Air Intake Visit Reasons: BP Special Certificate Dictator Required: No Allergies meperidine (From DEMEROL) Allergy (Intermediate, Verified 06/05/25 11:48) DRY HEAVES Sulfa (Sulfonamide Antibiotics) Allergy (Unknown, Verified 06/05/25 11:48) rash sulfamethoxazole (From BACTRIM) Allergy (Unknown, Verified 06/05/25 11:48) RASH trimethoprim (From BACTRIM) Allergy (Unknown, Verified 06/05/25 11:48) RASH bee Allergy (Unknown, Uncoded 01/27/24 11:21) anaphylaxis Bee stings Allergy (Unknown, Uncoded 01/27/24 11:21) anaphylaxis Wasps/fire ants Allergy (Unknown, Uncoded 01/27/24 11:21) anaphylaxis Hydrochlorothiazide Adverse Reaction (Mild, Uncoded 01/27/24 11:21) Lightheadedness Medication List - Last Reconciled 06/05/25 by Daphne Fraga MD aspirin (Adult Low Dose Aspirin) 81 mg PO DAILY cholecalciferol (vitamin D3) 25 mcg PO DAILY 90 days lisinopril 40 mg PO DAILY magnesium oxide 400 mg PO DAILY 90 days pantoprazole 20 mg PO DAILY 90 days Tobacco use date assessed: 11/27/24 Fall risk assessment: No Falls in past year Last assessed Fall Risk: 06/05/25 Dental Screening Dental Screen Date: 11/27/24 HPI BP HPI Details History of Present Illness The patient is a 80-year-old female presenting with hypertension. Hypertension: - The primary issue is elevated blood pr essure readings. - Patient reported not consistently chec kely blood pressure every day.. - Current medication regimen includes li sinopril 40 mg in the morning. Social History: - The patient lives with her . - They own 16 cats, and the patient is i nvolved in their care. - Nutritional intake includes coffee and oatmeal cookies in the morning. 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 Diagnostic Results: - Labs: Previous magnesium levels checke d in February were reported as low. Problem List - Hypertension uncontrolled low Mag Plan - I planned to add atenolol, a beta bloc ker, to the patient's regimen to better manage her hypertension. - I discussed that the patient should co ntinue taking lisinopril at the current dosage. - The importance of monitoring and contr olling blood pressure was emphasized, considering risks associated with elevated levels. - I recommended obtaining a magnesium le toney to re-evaluate, given the prior low levels in February. - Changed magnesium supplementation to a n alternative form easier to ingest and possibly improve compliance, given the difficulty with the current magnesium oxide tablets. - Patient is advised to use a blood pres sure machine daily to log readings, focusing on morning and afternoon measures. Patient Instructions - Continue taking lisinopril as prescrib ed. - Begin taking atenolol 25 mg as discuss ed. - Monitor blood pressure daily, write do wn the readings, and bring the log to the next appointment. - Go for lab tests today, specifically a blood test for magnesium and kidney function. - Take magnesium supplement in the new f orm prescribed. - Return in about two or three weeks wit h blood pressure log and machine. f/u 2 wks Review of Systems - General: No fever no chills - Neurological: No headaches no dizziness - Ear nose throat: No sore throat no hearing difficulty no ear pain - Cardiovascular: No syncope, no chest pain, no palpitations - Gastrointestinal: No nausea vomiting or diarrhea - Endocrine: No polyuria polydipsia no heat intolerance - Genitourinary: No dysuria , no blood in urine Physical Exam General: No acute distress HEENT: No acute findings Neck: Supple Respiratory system: Able to talk in full sentences, no audible wheeze Cardiovascular: S1-S2 regular in rate and rhythm, blood pressure 160/98 Gastrointestinal: No pain Extremities: No new findings 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 x3 motor intact Skin: Normal turgor [facility] Medical History Cellulitis of skin Surgical History History of nasal surgery Hx of removal of ovary History of tubal ligation History of section Mammogram normal Family History Father Ruptured aortic aneurysm Mother Myocardial infarction Son History of blood clots Social History Housing: Other Alcohol intake: current Alcohol intake frequency: 0-2 drinks per day Alcohol type: beer Patient Tobacco Use Status: Former Tobacco user e-Cigarette/Vaping Use: Never Used Current occupational status: retired Cognitive needs: No Hearing needs: No Vision needs: No Questionnaire PHQ-9 Over the last 2 weeks, how often have you been bothered by any of the following problems? 1. Little interest or pleasure in doing things: not at all 2. Feeling down, depressed, or hopeless: not at all 3. Trouble falling or staying asleep, or sleeping too much: not at all 4. Feeling tired or having little energy: not at all 5. Poor appetite or overeating: not at all 6. Feeling bad about yourself - or that you are a failure or have let yourself or your family down: not at all 7. Trouble concentrating on things, such as reading the newspaper or watching television: not at all 8. Moving or speaking so slowly that other people could have noticed. Or the opposite - being so fidgety or restless that you have been moving around a lot more than usual: not at all 9. Thoughts that you would be better off or of hurting yourself in some way: not at all Total score: 0 Depression Screening Interpretation: Negative Depression Screening Done: Yes 75503 - PHQ-9 Billing: Yes Source: Developed by Drs. Carmelo Montgomery, Marilou Wright, Alex Velez and colleagues, with an educational jose from [employer]. Thrive Questionnaire Date Thrive assessed: 11/27/24 I am a: Patient What is your living situation today?: I have a steady place to live Within the past 12 months, did the food you bought not last and you didn't have the money to get more?: Often true Within the past 12 months, did you worry whether your food would run out before you got money to buy more?: Never true Do you have trouble paying for medicines?: No Do you have trouble getting transportation to medical appointments?: No Do you have trouble paying your heating and electricity bill?: No Do you have trouble taking care of your child, family member or friend?: No Do you have trouble with day-to-day activities such as bathing, preparing meals, shopping, managing finances, etc.?: No Are you currently unemployed and looking for a job?: No Are you interested in more education?: No Please select the resources that you would like help with: None Currently or been in a relationship where the following occur: No concerns reported THRIVE Score: 1 AUDIT C Alcohol Use Questionnaire (AUDIT-C) 1. How often do you have a drink containing alcohol?: Monthly or less 2. How many drinks containing alcohol do you have on a typical day when you are drinking?: 1 or 2 3. How often do you have six or more drinks on one occasion?: Less than monthly Total Score: 2 MATTI-7 AMB Questionnaire MATTI-7 Date MATTI - 7 assessed: 11/27/24 Feeling nervous, anxious, or on edge: 0 = Not at all Not being able to stop or control worryin = Not at all Worrying too much about different things: 0 = Not at all Trouble relaxin = Not at all Being so restless that it is hard to sit still: 0 = Not at all Becoming easily annoyed or irritable: 0 = Not at all Feeling afraid as if something awful might happen: 0 = Not at all Total MATTI-7 score (0-4 normal; 5-9 mild; 10-14 moderate; 15-21 severe): 0 Source: Developed by Drs. Carmelo Montgomery, Marilou Wright, Alex Velez and colleagues, with an educational jose from [employer]. MATTI-7 Assessment Billing MATTI-7 Assessment Tool: MATTI-7 Assessment 39087 Physical exam (Primary Care) Vital Signs: Last Vital Signs Pulse 87 06/05/25 11:47 BP 160/98 H 06/05/25 11:47 Pulse Ox 98 06/05/25 11:47 Oxygen Delivery Method Room Air 06/05/25 11:47 BMI result Body Mass Index 21.0 Tobacco/Smoking Status: Tobacco use Status Tobacco use date assessed 11/27/24 06/05/25 11:48 Patient Tobacco Use Status Former Tobacco user 06/05/25 11:48 e-Cigarette/Vaping Use Never Used 06/05/25 11:48 PHQ-9: PHQ-9 Score PHQ-9: Total score 0 06/05/25 11:49 Depression Screening Interpretation: Negative Thrive Assessment: Date of Thrive Assessment Date Thrive assessed 11/27/24 06/05/25 11:48 Currently or been in a relationship where the following occur: No concerns reported Coding Level of Care Code Est Pt Level 3 (79604) Complex EM visit Add On G2211 Diagnoses Uncontrolled hypertension I10 Lipid disorder E78.9 Low magnesium level R79.0 Benign essential HTN I10 Additional Codes PHQ-9 - 40050 - PHQ-9 Billing: Yes ([id number]) MATTI-7 Assessment Billing - MATTI-7 Assessment Tool: MATTI-7 Assessment 21800 ([id number]) Assessment & Plan Assessment & Plan (1) Uncontrolled hypertension: Code(s): I10 - Essential (primary) hypertension Category: Medical (2) Lipid disorder: Code(s): E78.9 - Disorder of lipoprotein metabolism, unspecified Category: Medical (3) Low magnesium level: Code(s): R79.0 - Abnormal level of blood mineral Category: Medical (4) Benign essential HTN: Code(s): I10 - Essential (primary) hypertension Category: Medical Plan History of Present Illness The patient is a 80-year-old female presenting with hypertension. Hypertension: - The primary issue is elevated blood pressure readings. - Patient reported not consistently checking blood pressure every day.. - Current medication regimen includes lisinopril 40 mg in the morning. Social History: - The patient lives with her . - They own 16 cats, and the patient is involved in their care. - Nutritional intake includes coffee and oatmeal cookies in the morning. 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 Diagnostic Results: - Labs: Previous magnesium levels checked in February were reported as low. Problem List - Hypertension uncontrolled low Mag Plan - I planned to add atenolol, a beta jacques, to the patient's regimen to better manage her hypertension. - I discussed that the patient should continue taking lisinopril at the current dosage. - The importance of monitoring and controlling blood pressure was emphasized, considering risks associated with elevated levels. - I recommended obtaining a magnesium level to re-evaluate, given the prior low levels in February. - Changed magnesium supplementation to an alternative form easier to ingest and possibly improve compliance, given the difficulty with the current magnesium oxide tablets. - Patient is advised to use a blood pressure machine daily to log readings, focusing on morning and afternoon measures. Patient Instructions - Continue taking lisinopril as prescribed. - Begin taking atenolol 25 mg as discussed. - Monitor blood pressure daily, write down the readings, and bring the log to the next appointment. - Go for lab tests today, specifically a blood test for magnesium and kidney function. - Take magnesium supplement in the new form prescribed. - Return in about two or three weeks with blood pressure log and machine. f/u 2 wks Orders: Orders Magnesium Today E78.9 - Disorder of lipoprotein metabolism, unspecified, I10 - Essential (primary) hypertension, R79.0 - Abnormal level of blood mineral Basic Metabolic Panel Today E78.9 - Disorder of lipoprotein metabolism, unspecified, I10 - Essential (primary) hypertension, R79.0 - Abnormal level of blood mineral Medications: New magnesium glycinate 100 mg PO .QHS 90 caps 3RF 90 days atenolol 25 mg PO DAILY 30 tabs 0RF Discontinued magnesium oxide Discontinued Reason: Doctor's Order 400 mg PO DAILY 90 days 90 tabs 0RF
--- OUTSIDE RECORDS SUMMARY | 2025-06-05 13:23 | XMS_ITS | Clinical Summary ---
Author Organization [facility] Facility Address [address] [place] [id number] Care Team Providers Care Social Media Content Manager Name Role Phone Daphne Fraga MD Primary Care Provider [phone] Social History Tobacco Use Types Packs/Day Years [...] age to complete this topic Insurance Lalita Hinds Care Teams Social Media Content Manager Relationship Specialty Start Date End Date Daphne Fraga MD [address] [place] [id number] PCP - General Internal Medicine 04/03/21
== END 2025-06-05 12:15 | disposition home or self-care (01) ==
LOC: HO.HMCC 11:45
PROVIDERS: PCP Internal Medicine; Visit Provider Internal Medicine
DX: I10 Essential (primary) hypertension (principal); E78.9 Disorder of lipoprotein metabolism, unspecified; R79.0 Abnormal level of blood mineral

== ENCOUNTER 2025-06-19 12:44 | Outpatient (AMB) | payer MEDICARE, SELFPAY ==
--- NOTE | 2025-06-19 12:46 | A.OFFPC_ITS ---
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: No Accompanied by: Self / Same As Patient Allergies meperidine (From DEMEROL) Allergy (Intermediate, Verified 06/19/25 12:47) DRY HEAVES Sulfa (Sulfonamide Antibiotics) Allergy (Unknown, Verified 06/19/25 12:47) rash sulfamethoxazole (From BACTRIM) Allergy (Unknown, Verified 06/19/25 12:47) RASH trimethoprim (From BACTRIM) Allergy (Unknown, Verified 06/19/25 12:47) RASH bee Allergy (Unknown, Uncoded 01/27/24 11:21) anaphylaxis Bee stings Allergy (Unknown, Uncoded 01/27/24 11:21) anaphylaxis Wasps/fire ants Allergy (Unknown, Uncoded 01/27/24 11:21) anaphylaxis Hydrochlorothiazide Adverse Reaction (Mild, Uncoded 01/27/24 11:21) Lightheadedness Medication List - Last Reconciled 06/19/25 by Daphne Fraga MD aspirin (Adult Low Dose Aspirin) 81 mg PO DAILY atenolol 25 mg PO DAILY cholecalciferol (vitamin D3) 25 mcg PO DAILY 90 days lisinopril 40 mg PO DAILY magnesium glycinate 100 mg PO .QHS 90 days pantoprazole 20 mg PO DAILY 90 days Tobacco use date assessed: 11/27/24 Fall risk assessment: No Falls in past year Last assessed Fall Risk: 06/19/25 Dental Screening Dental Screen Date: 11/27/24 HPI 2 week follow up HPI Details History of Present Illness The patient is a 80-year-old female presenting with hypertension. Hypertension: - The patient is experiencing fluctuatio ns in blood pressure readings, particularly with higher measurements in the afternoons. - She has been taking lisinopril in the morning before 10:00 AM. - Atenolol is taken mid-morning or sligh tly later, around 11:00 AM, but sometimes postponed due to concerns over frequent urination. - She reports her blood pressure cuff re adings include variability, such as 138/80 mmHg with a pulse of 66 and 134/75 mmHg with a pulse of 61. - Higher readings are noted in the after noons, with one instance of 150/82 mmHg and a pulse of 59 at 1:50 PM. - She has a personal goal to avoid multi ple bathroom trips by timing her medication intake. - There is a history of not consistently adhering to the atenolol regimen due to her reasoning about frequent urination. 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 - Initiate labetalol 100 mg therapy to concha crews hypertension. - Advise the patient to attend a follow- up appointment in three weeks to evaluate the effectiveness of labetalol and to bring her home blood pressure cuff for a comparative measurement. - Encourage lifestyle modifications, inc luding consistent medication adherence and considering dietary portions as discussed regarding caffeine and sugar intake. 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 x3 motor 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 - Skin: Normal turgor [facility] Medical History Cellulitis of skin Surgical History History of nasal surgery Hx of removal of ovary History of tubal ligation History of section Mammogram normal Family History Father Ruptured aortic aneurysm Mother Myocardial infarction Son History of blood clots Social History Housing: Other Alcohol intake: current Alcohol intake frequency: 0-2 drinks per day Alcohol type: beer Patient Tobacco Use Status: Former Tobacco user e-Cigarette/Vaping Use: Never Used Current occupational status: retired Cognitive needs: No Hearing needs: No Vision needs: No Questionnaire PHQ-9 Over the last 2 weeks, how often have you been bothered by any of the following problems? 1. Little interest or pleasure in doing things: not at all 2. Feeling down, depressed, or hopeless: not at all 3. Trouble falling or staying asleep, or sleeping too much: not at all 4. Feeling tired or having little energy: not at all 5. Poor appetite or overeating: not at all 6. Feeling bad about yourself - or that you are a failure or have let yourself or your family down: not at all 7. Trouble concentrating on things, such as reading the newspaper or watching television: not at all 8. Moving or speaking so slowly that other people could have noticed. Or the opposite - being so fidgety or restless that you have been moving around a lot more than usual: not at all 9. Thoughts that you would be better off or of hurting yourself in some way: not at all Total score: 0 Depression Screening Interpretation: Negative Depression Screening Done: Yes 65785 - PHQ-9 Billing: Yes Source: Developed by Drs. Carmelo Montgomery, Marilou Wright, Alex Velez and colleagues, with an educational jose from [employer]. Thrive Questionnaire Date Thrive assessed: 11/27/24 I am a: Patient What is your living situation today?: I have a steady place to live Within the past 12 months, did the food you bought not last and you didn't have the money to get more?: Often true Within the past 12 months, did you worry whether your food would run out before you got money to buy more?: Never true Do you have trouble paying for medicines?: No Do you have trouble getting transportation to medical appointments?: No Do you have trouble paying your heating and electricity bill?: No Do you have trouble taking care of your child, family member or friend?: No Do you have trouble with day-to-day activities such as bathing, preparing meals, shopping, managing finances, etc.?: No Are you currently unemployed and looking for a job?: No Are you interested in more education?: No Please select the resources that you would like help with: None Currently or been in a relationship where the following occur: No concerns reported THRIVE Score: 1 MATTI-7 AMB Questionnaire MATTI-7 Date MATTI - 7 assessed: 11/27/24 Source: Developed by Drs. Carmelo Montgomery, Marilou Wright, Alex Velez and colleagues, with an educational jose from [employer]. Physical exam (Primary Care) Vital Signs: Last Vital Signs Pulse 87 06/19/25 12:47 BP 180/100 H 06/19/25 12:47 Pulse Ox 97 06/19/25 12:47 Tobacco/Smoking Status: Tobacco use Status Tobacco use date assessed 11/27/24 06/19/25 12:53 Patient Tobacco Use Status Former Tobacco user 06/19/25 12:53 e-Cigarette/Vaping Use Never Used 06/19/25 12:53 PHQ-9: PHQ-9 Score PHQ-9: Total score 0 06/19/25 12:53 Depression Screening Interpretation: Negative Thrive Assessment: Date of Thrive Assessment Date Thrive assessed 11/27/24 06/19/25 12:53 Currently or been in a relationship where the following occur: No concerns reported Coding Level of Care Code Est Pt Level 3 (98817) Diagnoses Uncontrolled hypertension I10 Additional Codes PHQ-9 - 31461 - PHQ-9 Billing: Yes ([id number]) Assessment & Plan Assessment & Plan (1) Uncontrolled hypertension: Code(s): I10 - Essential (primary) hypertension Category: Medical Plan Hypertension: - The patient is experiencing fluctuations in blood pressure readings, particularly with higher measurements in the afternoons. - She has been taking lisinopril in the morning before 10:00 AM. - Atenolol is taken mid-morning or slightly later, around 11:00 AM, but sometimes postponed due to concerns over frequent urination. - She reports her blood pressure cuff readings include variability, such as 138/80 mmHg with a pulse of 66 and 134/75 mmHg with a pulse of 61. - Higher readings are noted in the afternoons, with one instance of 150/82 mmHg and a pulse of 59 at 1:50 PM. - She has a personal goal to avoid multiple bathroom trips by timing her medication intake. - There is a history of not consistently adhering to the atenolol regimen due to her reasoning about frequent urination. 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 - Initiate labetalol 100 mg therapy to manage hypertension. - Advise the patient to attend a follow-up appointment in three weeks to evaluate the effectiveness of labetalol and to bring her home blood pressure cuff for a comparative measurement. - Encourage lifestyle modifications, including consistent medication adherence and considering dietary portions as discussed regarding caffeine and sugar intake. - Patient declined seeing Production Hardener for Bp managment Medications: New labetalol 100 mg PO DAILY 90 tabs 0RF 90 days Discontinued lisinopril Discontinued Reason: Doctor's Order 40 mg PO DAILY 90 tabs 0RF atenolol Discontinued Reason: Doctor's Order 25 mg PO DAILY 30 tabs 0RF
[2025-06-19 12:47] VITALS: BP 180/100; PULSE 87; O2SAT 97
== END 2025-06-19 13:12 | disposition home or self-care (01) ==
LOC: HO.HMCC 12:45
PROVIDERS: PCP Internal Medicine; Visit Provider Internal Medicine
DX: I10 Essential (primary) hypertension (principal)

== ENCOUNTER → 2025-06-19 12:44 | Outpatient (BNVA) | payer MEDICARE, SELFPAY | PROVIDERS: PCP Internal Medicine; Visit Provider Internal Medicine | DX: I10 Essential (primary) hypertension (principal) | CPT/HCPCS: 96127; 99212 ==

== ENCOUNTER 2025-07-10 12:02 | Outpatient (AMB) | payer MEDICARE, SELFPAY ==
[2025-07-10 12:09] VITALS: BP 170/90; PULSE 89; O2SAT 100
--- NOTE | 2025-07-10 12:09 | MHC.PC.OV ---
Vital Signs 07/10/25 12:09 Height 5 ft 2 in BMI Reason not done Patient refused/unable BP 170/90 H Blood Pressure Location Lt brachial Position Sitting Pulse 89 Pulse Source Pulse Oximeter Pulse Oximetry (%) 100 Intake Visit Reasons: 3 weeks f/up Allergies meperidine (From DEMEROL) Allergy (Intermediate, Verified 07/10/25 12:09) DRY HEAVES Sulfa (Sulfonamide Antibiotics) Allergy (Unknown, Verified 07/10/25 12:09) rash sulfamethoxazole (From BACTRIM) Allergy (Unknown, Verified 07/10/25 12:09) RASH trimethoprim (From BACTRIM) Allergy (Unknown, Verified 07/10/25 12:09) RASH bee Allergy (Unknown, Uncoded 01/27/24 11:21) anaphylaxis Bee stings Allergy (Unknown, Uncoded 01/27/24 11:21) anaphylaxis Wasps/fire ants Allergy (Unknown, Uncoded 01/27/24 11:21) anaphylaxis Hydrochlorothiazide Adverse Reaction (Mild, Uncoded 01/27/24 11:21) Lightheadedness Medication List - Last Reconciled 07/10/25 by Daphne Fraga MD aspirin (Adult Low Dose Aspirin) 81 mg PO DAILY cholecalciferol (vitamin D3) 25 mcg PO DAILY 90 days labetalol 100 mg PO DAILY 90 days magnesium glycinate 100 mg PO .QHS 90 days pantoprazole 20 mg PO DAILY 90 days Tobacco use date assessed: 11/27/24 Fall risk assessment: No Falls in past year Last assessed Fall Risk: 07/10/25 Dental Screening Dental Screen Date: 11/27/24 HPI 3 weeks f/up HPI Details History of Present Illness The patient is a 80-year-old female presenting for a 3-week follow-up appointment for hypertension management. 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 - At-home blood pressure readings were reported to be in the range of 140-150 mmHg, with some readings in the 130s. - She reports taking lisinopril, labetalol, pantoprazole, and vitamin D, spacing them out throughout the day. - The patient denies symptoms and feels well despite her elevated blood pressure readings. - She reports significant stress at home related to caring for 16 cats. - The patient did not bring her home blood pressure machine to the visit for calibration as previously requested. Medications: - Lisinopril for hypertension - Labetalol 100 mg for hypertension - Pantoprazole for a stomach condition - Vitamin D Problem List - Essential Hypertension uncontrolled Plan - The patient's labetalol dose will be increased from 100 mg to 200 mg daily to improve blood pressure control. - The patient was instructed to take two of her current 100 mg labetalol tablets to achieve the 200 mg dose until her current supply is finished. - A new prescription for labetalol 200 mg tablets will be sent to the pharmacy. - The patient will continue lisinopril, pantoprazole, and vitamin D as previously scheduled. - The patient was educated that blood pressure readings of 140-150 mmHg are high and about the risks of uncontrolled hypertension. - The patient was advised to resume daily home blood pressure monitoring and to bring her BP machine to her next appointment for calibration. - A follow-up appointment is scheduled in 3 months. Review of Systems - General: No fever no chills - Neurological: No headaches no dizziness - Ear nose throat: No sore throat no hearing difficulty no ear pain - Cardiovascular: No syncope, no chest pain, no palpitations - Gastrointestinal: No nausea vomiting or diarrhea - Endocrine: No polyuria polydipsia no heat intolerance - Genitourinary: No dysuria , no blood in urine Physical Exam - General: No acute distress - HEENT: No acute findings - Neck: Supple - Respiratory system: Able to talk in full sentences, no audible wheeze - Cardiovascular: S1-S2 regular in rate and rhythm - Gastrointestinal: No pain - Extremities: No new findings - KNIT TUBING DYER: Alert awake oriented x3 motor intact - Skin: Normal tur[facility] History Cellulitis of skin Surgical History History of nasal surgery Hx of removal of ovary History of tubal ligation History of section Mammogram normal Family History Father Ruptured aortic aneurysm Mother Myocardial infarction Son History of blood clots Social History Housing: Other Alcohol intake: current Alcohol intake frequency: 0-2 drinks per day Alcohol type: beer Patient Tobacco Use Status: Former Tobacco user e-Cigarette/Vaping Use: Never Used Current occupational status: retired Cognitive needs: No Hearing needs: No Vision needs: No Questionnaire Thrive Questionnaire Date Thrive assessed: 11/27/24 I am a: Patient What is your living situation today?: I have a steady place to live Within the past 12 months, did the food you bought not last and you didn't have the money to get more?: Often true Within the past 12 months, did you worry whether your food would run out before you got money to buy more?: Never true Do you have trouble paying for medicines?: No Do you have trouble getting transportation to medical appointments?: No Do you have trouble paying your heating and electricity bill?: No Do you have trouble taking care of your child, family member or friend?: No Do you have trouble with day-to-day activities such as bathing, preparing meals, shopping, managing finances, etc.?: No Are you currently unemployed and looking for a job?: No Are you interested in more education?: No Please select the resources that you would like help with: None Currently or been in a relationship where the following occur: No concerns reported THRIVE Score: 1 MATTI-7 AMB Questionnaire MATTI-7 Date MATTI - 7 assessed: 11/27/24 Source: Developed by Drs. Carmelo Montgomery, Marilou Wright, Alex Velez and colleagues, with an educational jose from [employer]. Physical exam (Primary Care) Vital Signs: Last Vital Signs Pulse 89 07/10/25 12:09 BP 170/90 H 07/10/25 12:09 Pulse Ox 100 07/10/25 12:09 Tobacco/Smoking Status: Tobacco use Status Tobacco use date assessed 11/27/24 07/10/25 12:10 Patient Tobacco Use Status Former Tobacco user 07/10/25 12:10 e-Cigarette/Vaping Use Never Used 07/10/25 12:10 Thrive Assessment: Date of Thrive Assessment Date Thrive assessed 11/27/24 07/10/25 12:10 Currently or been in a relationship where the following occur: No concerns reported Coding Level of Care Code Est Pt Level 3 (93299) Diagnoses Uncontrolled hypertension I10 Assessment & Plan Assessment & Plan (1) Uncontrolled hypertension: Code(s): I10 - Essential (primary) hypertension Category: Medical Plan Essential Hypertension: - 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 - At-home blood pressure readings were reported to be in the range of 140-150 mmHg, with some readings in the 130s. - She reports taking lisinopril, labetalol, pantoprazole, and vitamin D, spacing them out throughout the day. - The patient denies symptoms and feels well despite her elevated blood pressure readings. - She reports significant stress at home related to caring for 16 cats. - The patient did not bring her home blood pressure machine to the visit for calibration as previously requested. Medications: - Lisinopril for hypertension - Labetalol 100 mg for hypertension - Pantoprazole for a stomach condition - Vitamin D Problem List - Essential Hypertension uncontrolled Plan - The patient's labetalol dose will be increased from 100 mg to 200 mg daily to improve blood pressure control. - The patient was instructed to take two of her current 100 mg labetalol tablets to achieve the 200 mg dose until her current supply is finished. - A new prescription for labetalol 200 mg tablets will be sent to the pharmacy. - The patient will continue lisinopril, pantoprazole, and vitamin D as previously scheduled. - The patient was educated that blood pressure readings of 140-150 mmHg are high and about the risks of uncontrolled hypertension. - The patient was advised to resume daily home blood pressure monitoring and to bring her BP machine to her next appointment for calibration. - A follow-up appointment is scheduled in 3 months. Medications: Changed From labetalol 100 mg PO DAILY 90 days 90 tabs 0RF To labetalol 200 mg PO DAILY 90 tabs 0RF 90 days Refilled lisinopril 40 mg PO DAILY 90 tabs 1RF
--- OUTSIDE RECORDS SUMMARY | 2025-07-10 14:46 | XMS_ITS | Clinical Summary ---
Author Organization [facility] Facility Address [address] [place] [id number] Care Team Providers Care Property Officer Name Role Phone Daphne Fraga MD Primary Care Provider [phone] Social History Tobacco Use Types Packs/Day Years [...] patient's age to complete this topic Insurance Revillo Revillo Care Teams Property Officer Relationship Specialty Start Date End Date Daphne Fraga MD [address] [place] [id number] PCP - General Internal Medicine 04/03/21
== END 2025-07-10 12:32 | disposition home or self-care (01) ==
LOC: HO.HMCC 12:03
PROVIDERS: PCP Internal Medicine; Visit Provider Internal Medicine
DX: I10 Essential (primary) hypertension (principal)

== ENCOUNTER → 2025-07-10 12:02 | Outpatient (BNVA) | payer MEDICARE, SELFPAY | PROVIDERS: PCP Internal Medicine; Visit Provider Internal Medicine | DX: I10 Essential (primary) hypertension (principal) | CPT/HCPCS: 99212 ==